=== PATIENT | male | born 1960 | race Caucasian/White ===

== ENCOUNTER 2017-08-22 05:45 | Inpatient (IN) | payer OTHER ==
[~2017-08-22] VITALS: Ht 167.6 cm; Wt 127.9 kg
--- NOTE | ~2017-08-22 | HC ---
[facility] [place] [address] CONSULTATION Name: JAY ADAMES Ruma Room #: 201-P [facility] IN M.R.#: [id number] Admission: 08/22/17 Attend Phys: Ronal Fonseca DO Discharge: Date of : 56 Report #: [id number] THIS REPORT FOR: //name// CC: ELIZABETH Fonseca DO [employer] DATE OF SERVICE: 08/22/2017 REFERRING PROVIDER: Ronal Fonseca DO REASON FOR CONSULTATION: Shortness of breath. HISTORY OF PRESENT ILLNESS: Our group was asked to see the patient in consultation while hospitalized at [facility], a pleasant 57-year-old male with past medical history most significant for muscular dystrophy and history of obstructive sleep apnea. States he is on a home BiPAP, may have been recommended to use a nocturnal ventilation device, such as a Trilogy, but the patient stated it was very expansive. He cannot give me exact clear reasons for the change. He also has a history of atrial flutter with history of permanent pacemaker and defibrillator implantation. Over the last several days, he had increasing cough, some shortness of breath, had some difficulty sleeping due to dyspnea and cough, had trouble wearing his BiPAP last night at home due to cough and dyspnea. Denies any fevers or chills. Cough has been nonproductive. No ill contacts, no recent travel. He presented to the Emergency Department earlier this morning for further evaluation. In the Emergency Department, a CT scan of the chest was performed. The patient is chronically on warfarin so no PE study was performed. The noncontrast CT suggested bibasilar atelectasis or early pneumonia, no other significant pathology identified. The patient has been resting on BiPAP, was able to tolerate oral intake this afternoon. ALLERGIES: None known. PAST MEDICAL HISTORY: 1. Muscular dystrophy as described. 2. History of atrial flutter/sick sinus syndrome, status post pacemaker placement. 3. Hypertension. 4. Myotonic dystrophy. PAST SURGICAL HISTORY: Includes laminectomy and cholecystectomy. SOCIAL HISTORY: The patient is a nonsmoker, nondrinker. Apparently, he is retired from the [employer]. [facility] [address] [place] [address] CONSULTATION Name: JAY ADAMES Room #: 201-P [facility] IN ..#: [id number] Admission: 08/22/17 Attend Phys: Ronal Fonseca DO Discharge: Date of : 56 Report #: [id number] FAMILY HISTORY: Significant for coronary artery disease and diabetes. REVIEW OF SYSTEMS: Rest of 12-point review of systems is negative except as described. He denies any progressive weakness. PHYSICAL EXAMINATION: VITAL SIGNS: Afebrile, pulse 60s, respiratory rate 16, blood pressure 109/75, oxygen saturation 91% on 6 liters nasal cannula. GENERAL: This is a pleasant middle-aged male, in no distress. Obviously weak. ENT: Clear oropharynx. No thrush. Mallampati 3 airway. NECK: Supple, no lymphadenopathy. LUNGS: Basilar inspiratory crackles, no wheezes. CARDIOVASCULAR: Heart regular. No murmurs noted. ABDOMEN: Obese, soft, nontender, no masses. EXTREMITIES: Revealed left greater than right lower extremity edema. LABORATORY DATA: CBC was normal. INR is 2.4. Chemistry profile normal except for proBNP of 429, troponin I 0.04. Urinalysis without any pyuria. Arterial blood gas on BiPAP 10/05, FiO2 of 40% revealed pH 7.34, pCO2 of 58, pO2 of 72, bicarbonate 31, not significantly different from 4 liters nasal cannula arterial blood gas. IMPRESSION: 1. Acute on chronic hypoxemic and hypercapnic respiratory failure. Continue with BiPAP as tolerated during the day today and with sleep may benefit from additional assist device with Trilogy for nocturnal ventilation. 2. Community-acquired pneumonia. Would check nasal swab for respiratory viral panel, urinary pneumococcal and legionella antigen test, sputum for culture if able and blood cultures. Continue coverage with Rocephin and azithromycin, and bronchodilators. 3. History of atrial flutter, possible paroxysmal supraventricular tachycardia episode during this admission. Cardiology consultation noted. 4. Myotonic dystrophy. 5. History of sleep apnea. RECOMMENDATIONS: As outlined above, would follow up arterial blood gas and chest x-ray tomorrow a.m. We will follow along with you. Thank you for allowing us to participate in this patient's care. By: 1538 06 Ian Curry MD /nt
--- NOTE | ~2017-08-22 | EKG ---
[place] [address] 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: JHAYLIE : 1960 Requested By: Virgilio De Souza Order Number: [id number] MD: Phillip Jose Measurements Intervals [place] Rate: 60 P: 0 [place]: 41 QRS: -76 QRSD: 146 T: 54 QT: 401 QTc: 401 Interpretive Statements Atrial-ventricular dual-paced rhythm No further analysis attempted due to paced rhythm No previous ECG available for comparison Electronically Signed On 08-22-2017 8:51:21 CDT by Phillip Jose [email or web address] <ELECTRONICALLY SIGNED> By: Phillip Jose MD, [facility] 08/22/17 0851 0555 0555 Phillip Jose MD, FACC /EPI
--- NOTE | ~2017-08-22 | HC ---
[facility] [place] [address] CONSULTATION Name: JAY ADAMES Room #: 205-P [facility] IN M.R.#: [id number] Admission: 08/22/17 Attend Phys: Ronal Fonseca DO Discharge: Date of : 56 Report #: [id number] THIS REPORT FOR: //name// CC: ELIZABETH Fonseca Educational Program Director DATE OF SERVICE: 08/22/2017 HISTORY OF PRESENT ILLNESS: The patient is a 57-year-old white male with history of myotonic muscular dystropy, atrial flutter with prior permanent pacemaker, BiPAP at night, admitted with acute on chronic respiratory failure with hypoxia. He has been diagnosed with bibasilar pneumonia with community-acquired pneumonia. Pulmonary medicine is closely involved. Complains of being overall weak with a decline from his premorbid functional status. We are seeing him in rehabilitation medicine consultation. PAST MEDICAL HISTORY: Includes atrial flutter, muscular dystrophy, pacemaker in 2011, hypertension. PAST SURGICAL HISTORY: Cholecystectomy, appendectomy, pacemaker as noted above. MEDICATIONS: Please see the full medication listing. HABITS: No history of tobacco or alcohol use. ALLERGIES: No known drug allergies. FAMILY HISTORY: Includes heart disease and diabetes. SOCIAL HISTORY: Lives in a house alone, one floor with just a couple of shallow steps to get in. He did use a cane around his house and he only ambulated short distances. Longer distances, he would use a walker. He is on O2 only at night. REVIEW OF SYSTEMS: Shortness of breath with limited activity, complains of generalized weakness. No complaints of chest pain or abdominal pain. He notes that his right upper extremity is definitely weaker than his left upper extremity. He feeds himself with his left hand. No focal extremity pain complaints. PHYSICAL EXAMINATION: GENERAL: A 57-year-old obese white male in no obvious distress. VITAL SIGNS: Last recorded temperature is 97.4, pulse 79, respirations 18, blood pressure 94/62. NEUROLOGIC: The patient is alert, appears pleasant. He ends up taking a shallow breath between his words. He appears to have facial weakness with [facility] [address] [place] [address] CONSULTATION Name: JAY ADAMES Room #: 205-P [facility] IN M.R.#: [id number] Admission: 08/22/17 Attend Phys: Ronal Fonseca DO Discharge: Date of : 56 Report #: [id number] bilateral ptosis and has difficulty forming a full smile. Depressed nasolabial folds bilaterally. EXTREMITIES: Upper extremity, he has definite weakness of the right upper extremity, appears to be grade 3 to 3+. He has definite decreased steward/stewardess economy class and difficulty with release of the steward/stewardess economy class of that right hand. Left upper extremity is better, have more of a grade 3+/5. He has a little better dexterity of that left hand and steward/stewardess economy class and release with better control. In his lower extremities, there is no focal calf swelling. Strength is grade 4-/5. DTRs are 1 to trace. No clonus. ASSESSMENT: A 57-year-old white male with the following problem list: 1. Myotonic muscular dystrophy. 2. Acute on chronic respiratory failure with hypoxemia. 3. Bibasilar community-acquired pneumonia. 4. Atrial flutter with prior failed ablation. 5. Obstructive sleep apnea with BiPAP at night. 6. Hypertension. 7. Exogenous obesity. PLAN: Therapy evaluations are underway. He certainly may benefit from a short acute in-hospital inpatient rehabilitation stay depending upon how he does in therapies. I note that PT and speech are involved. I will add OT. He denied any swallowing problems prior to his admission. We will be glad to follow along with you regarding his rehab therapy needs. By: 1108 1220 Jorge Luke MD /TRIPP
--- NOTE | ~2017-08-22 | 2DMMODE ---
[facility] [address] [place] [address] 2 D/M-MODE ECHOCARDIOGRAM Name: JAY ADAMES Room #: 205-P [facility] IN ..#: [id number] Admission: 08/22/17 Attend Phys: Ronal Fonseca, Discharge: Date of : 56 Date of Service: 08/23/17 0923 Report #: [id number] THIS REPORT FOR: //name// APPROVED REPORT Study performed: 08/23/2017 08:18:57 EXAM: Comprehensive 2D, Doppler, and color-flow Echocardiogram Patient Location: Bedside Room #: 205 Status: routine BSA: 2.31 BP: 113/83 mmHg Other Information Study Quality: Technically Difficult Technically limited study due to body habitus. Indications Dyspnea Pacemaker Hypertension/HDD 2D Dimensions RVDd: 28.11 mm LVEF(%): 54.97 (>50%) IVSd: 14.64 (7-11mm) LVOT Diam: 21.90 (18-24mm) LVDd: 47.70 mm PWd: 16.08 (7-11mm) Ascending Ao: 47.21 (22-36mm) LVDs: 34.08 (25-40mm) Aortic Root: 39.71 mm IVC: 18.00 mm Barclay's LVEF: 54.97 % Volumes Left Atrial Volume (Systole) Single Plane 4CH: 31.73 mL Single Plane 2CH: 51.39 mL LA ESV Index: 21.00 mL/m2 Aortic Valve AoV Peak Junito.: 1.81 m/s AO Peak Gr.: 13.06 mmHg LVOT Max P.99 mmHg LVOT Max V: 1.12 m/s CIRA Vmax: 2.33 cm2 Mitral Valve [facility] [address] [address] 2 D/M-MODE ECHOCARDIOGRAM Name: ADAMESJAY Room #: 205-[facility] IN ..#: [id number] Admission: 08/22/17 Attend Phys: Ronal Fonseca, Discharge: Date of : 56 Date of Service: 08/23/17 0923 Report #: [id number] E/A Ratio: 2.6 MV Decel. Time: 185.78 ms MV E Max Junito.: 0.87 m/s MV A Junito.: 0.33 m/s MV PHT: 53.88 ms IVRT: 87.66 ms Pulmonary Valve PV Peak Junito.: 0.77 m/s PV Peak Gr.: 2.36 mmHg Tricuspid Valve RAP Estimate: 5.00 mmHg Left Ventricle The left ventricle is normal size. Regional wall motion is not well visualized but grossly normal. Mild to moderate concentric left ventricular hypertrophy. The left ventricular systolic function is normal. The left ventricular ejection fraction is within the normal range. LVEF is 60-65%. This study is not technically sufficient to allow evaluation of the LV diastolic function. Right Ventricle The right ventricle is normal size. Right ventricular function cannot be assessed due to poor image quality. Atria The left atrium size is normal. The right atrium size is normal. Aortic Valve Aortic valve is mildly calcified. Mild aortic regurgitation. There is no aortic valvular stenosis. Mitral Valve The mitral valve is normal in structure. There is no mitral valve regurgitation noted. No evidence of mitral valve stenosis. Tricuspid Valve The tricuspid valve is normal in structure. There is no tricuspid valve regurgitation noted. Unable to assess PA pressure. Pulmonic Valve Pulmonic valve is not well visualized. There is no pulmonic valvular regurgitation. [employer] [facility] [address] [place] [address] 2 D/M-MODE ECHOCARDIOGRAM Name: JAY ADAMES Ruma Room #: 205-P [facility] IN ..#: [id number] Admission: 08/22/17 Attend Phys: Ronal Fonseca, Discharge: Date of : 56 Date of Service: 08/23/17 0923 Report #: [id number] Aortic root is dilated at 4 cm. Ascending aorta is dilated at 4.7 cm. IVC is normal in size and collapses >50% with inspiration. Pericardium There is no pericardial effusion. <Conclusion> The left ventricular systolic function is normal. Regional wall motion is not well visualized but grossly normal. LVEF 60-65%. Aortic valve is mildly calcified. Mild aortic regurgitation, no stenosis. The mitral valve is normal in structure. No mitral valve regurgitation noted. Ascending aorta is dilated at 4.7 cm. There is no pericardial effusion. ICD wires in right heart <ELECTRONICALLY SIGNED> By: Phillip Jose MD, FACC 08/23/17922 2 2 Phillip Jose MD, FACC /INF
[~2017-08-22 05:45] MED LIST: ALDACTONE25 MG PO; COUMADIN 3 MG TA3 M1 PO; COUMADIN 4 MG TA4 M1 PO; QUINAPRIL HCL5 MG PO; TOPROL XL50 MG PO
[2017-08-22 05:50] VITALS: BP 142/89
[2017-08-22 06:21] LABS: ABSOLUTE NEUTROPHILS 6.8 thou/uL (1.4-8.2); BASOPHILS 0.6 % (0.0-2.0); HEMATOCRIT 46.7 % (42.0-52.0); HEMOGLOBIN 15.3 gm/dL (14.0-18.0); LYMPHOCYTES 9.6 % (24.0-44.0); MCH 31.2 pg (26.0-34.0); MCHC 32.7 g/dL (28.0-37.0); MCV 95.3 fL (80.0-100.0); MONOCYTES 4.7 % (1.0-8.0); PLATELET COUNT 160 thou/uL (150-400); POLYS 83.1 % (36.0-66.0); WBC 8.2 thou/uL (4.0-11.0)
[2017-08-22 06:27] LABS: MANUAL DIFF NO
[2017-08-22 06:30] LABS: ANION GAP 1 mmol/L (7-16); BUN 12 mg/dL (7-18); CALCIUM 9.1 mg/dL (8.5-10.1); CHLORIDE 106 mmol/L (98-107); CO2 32 mmol/L (21-32); CREATININE 0.8 mg/dL (0.7-1.3); GLUCOSE 112 mg/dL (74-106); POTASSIUM 4.5 mmol/L (3.5-5.1); SODIUM 139 mmol/L (136-145)
[2017-08-22 06:32] LABS: INR 2.4; PROTIME 24.3 Seconds (9.3-11.4)
[2017-08-22 06:39] LABS: TROPONIN-I < 0.04 ng/mL (<0.04-0.07)
[2017-08-22 06:42] LABS: ABG SAMPLE TYPE ARTERIAL; BE(vivo) 2.7 mmol/L (-2 to +3); HCO3 30.1 mmol/L (22.0-26.0); LACTATE 1.34 mmol/L (0.5-2.0); O2(CT) 21.5 mL/dL (15.0-23.0); O2Hb 92.7 % (92.0-98.0); PCO2 56.2 mmHg (35.0-45.0); PO2 72.8 mmHg (80.0-100.0); STICK SITE L.RADIAL; pH 7.346 (7.360-7.450); sO2 93.6 % (92.0-98.0); tCO2 31.8 mmol/L (24.0-30.0)
[2017-08-22 08:28] VITALS: BP 133/88
[2017-08-22 10:40] VITALS: BP 109/75
[2017-08-22 10:53] VITALS: BP 95/62
[2017-08-22 12:56] LABS: ABG SAMPLE TYPE ARTERIAL; BE(vivo) 3.4 mmol/L (-2 to +3); HCO3 30.9 mmol/L (22.0-26.0); LACTATE 1.85 mmol/L (0.5-2.0); O2Hb 92.7 % (92.0-98.0); PCO2 58.2 mmHg (35.0-45.0); PO2 71.6 mmHg (80.0-100.0); Pressure Support 6 cm H20; STICK SITE L.RADIAL; pH 7.343 (7.360-7.450); sO2 93.2 % (92.0-98.0); tCO2 32.7 mmol/L (24.0-30.0)
[2017-08-22 13:19] LABS: URINE BILIRUBIN NEGATIVE (Negative); URINE BLOOD 1+ (Negative); URINE COLOR YELLOW; URINE GLUCOSE-RANDOM* NEGATIVE (Negative); URINE KETONES NEGATIVE (Negative); URINE LEUKOCYTES-REFLEX NEGATIVE (Negative); URINE PROTEIN (DIPSTICK) NEGATIVE (Negative); URINE UROBILINOGEN 0.2 E.U./dl (0.2-1.0)
[2017-08-22 13:28] LABS: CASTS None Seen /LPF (None Seen); SQUAMOUS None Seen /LPF (0-3); URINE RBC 0-2 Rare /HPF (0-2); URINE WBC-REFLEX None Seen /HPF (0-5)
[2017-08-22 13:29] LABS: CRYSTALS None Seen /LPF (None Seen)
[2017-08-22 19:05] VITALS: BP 97/68
[2017-08-22 23:36] VITALS: BP 118/75
[2017-08-23 03:40] VITALS: BP 135/86
[2017-08-23 04:44] LABS: ABSOLUTE NEUTROPHILS 4.8 thou/uL (1.4-8.2); BASOPHILS 0.8 % (0.0-2.0); EOSINOPHILS 1.2 % (0.0-3.0); HEMATOCRIT 46.8 % (42.0-52.0); HEMOGLOBIN 15.2 gm/dL (14.0-18.0); LYMPHOCYTES 16.4 % (24.0-44.0); MCH 30.9 pg (26.0-34.0); MCHC 32.5 g/dL (28.0-37.0); MCV 95.1 fL (80.0-100.0); PLATELET COUNT 155 thou/uL (150-400); POLYS 74.6 % (36.0-66.0); RBC 4.92 mil/uL (4.50-6.00); RDW 15.9 % (10.5-14.5); WBC 6.4 thou/uL (4.0-11.0)
[2017-08-23 04:47] LABS: MANUAL DIFF NO
[2017-08-23 04:52] LABS: CALCIUM 9.2 mg/dL (8.5-10.1); CREATININE 0.9 mg/dL (0.7-1.3); MAGNESIUM 2.4 mg/dL (1.8-2.4); POTASSIUM 4.2 mmol/L (3.5-5.1)
[2017-08-23 04:53] LABS: INR 2.6; PROTIME 26.3 Seconds (9.3-11.4)
[2017-08-23 07:03] LABS: ABG SAMPLE TYPE ARTERIAL; BE(vivo) 3.9 mmol/L (-2 to +3); HCO3 29.8 mmol/L (22.0-26.0); LACTATE 0.98 mmol/L (0.5-2.0); O2(CT) 21.1 mL/dL (15.0-23.0); O2Hb 92.1 % (92.0-98.0); PCO2 49.2 mmHg (35.0-45.0); PO2 68.2 mmHg (80.0-100.0); STICK SITE L.RADIAL; sO2 93.5 % (92.0-98.0); tCO2 31.3 mmol/L (24.0-30.0)
[2017-08-23 07:22] VITALS: BP 113/83
[2017-08-23 19:28] VITALS: BP 98/75
[2017-08-24 04:43] VITALS: BP 82/53
[2017-08-24 08:29] VITALS: BP 94/62
[2017-08-24 11:48] VITALS: BP 79/52
[2017-08-24 15:37] VITALS: BP 85/59
[2017-08-24 19:46] VITALS: BP 98/52
[2017-08-24 23:43] VITALS: BP 99/57
[2017-08-25 04:31] VITALS: BP 128/99
[2017-08-25 07:15] VITALS: BP 104/62
[2017-08-25 12:50] VITALS: BP 70/40
[2017-08-25] MEDS ORDERED: ACETAMINOPHEN325 M1 PO (13:33)
[2017-08-25 14:50] LABS: ABG SAMPLE TYPE ARTERIAL; BE(vivo) 1.7 mmol/L (-2 to +3); HCO3 29.1 mmol/L (22.0-26.0); O2Hb 94.1 % (92.0-98.0); PCO2 56.7 mmHg (35.0-45.0); PO2 78.5 mmHg (80.0-100.0); sO2 94.5 % (92.0-98.0); tCO2 30.8 mmol/L (24.0-30.0)
[2017-08-25 14:53] LABS: pH 7.328 (7.360-7.450)
[2017-08-25 14:54] LABS: STICK SITE L.RADIAL
== END 2017-08-25 14:59 | DRG 871 ==
LOC: ER 05:45 → EROBS 08:15 → 2N 08:15 → ENTRNSPT 08-25 14:28 → EDTRNSPTSTS 08-25 14:29 → 2N 08-25 14:59
PROVIDERS: Emergency Medicine; Family Medicine; Internal Medicine Pulmonary Disease; Nurse Practitioner
PROC: 5A09357 Assistance with Respiratory Ventilation, Less than 24 Consecutive Hours, Continuous Positive Airway Pressure (ICD-10-PCS; principal; 2017-08-22)
DX: A41.9 Sepsis, unspecified organism (principal); J96.21 Acute and chronic respiratory failure with hypoxia; J18.0 Bronchopneumonia, unspecified organism; J96.22 Acute and chronic respiratory failure with hypercapnia; I48.92 Unspecified atrial flutter; Z68.42 Body mass index [BMI] 45.0-49.9, adult; Z96.89 Presence of other specified functional implants; I10 Essential (primary) hypertension; Z60.2 Problems related to living alone; G71.11 Myotonic muscular dystrophy; G47.33 Obstructive sleep apnea (adult) (pediatric); E66.09 Other obesity due to excess calories; I48.91 Unspecified atrial fibrillation; Z28.21 Immunization not carried out because of patient refusal; Z90.49 Acquired absence of other specified parts of digestive tract; Z82.49 Family history of ischemic heart disease and other diseases of the circulatory system; Z83.3 Family history of diabetes mellitus; Z79.899 Other long term (current) drug therapy
CPT/HCPCS: 10081

== ENCOUNTER → 2017-09-14 | Outpatient (CLI) | payer OTHER ==
[~2017-09-14] MED LIST changes: +ACETAMINOPHEN325 M1 PO; +BACTRIM DS TAB1 EACH PO; +COUMADIN 1MG TAB1 M1 PO; +COUMADIN 2.5MG2.5 M1 PO; +DUONEB 2.5-0.5 M3 ML INH; +PROBIOTIC1 EAC1 PO; +PROTONIX40 M1 PO; +SSD CREAM 1% 5050 GM TOP; +TOPROL XL25 MG PO
== END ==
LOC: HYPER 06:57
DX: I87.2 Venous insufficiency (chronic) (peripheral) (principal); L97.822 Non-pressure chronic ulcer of other part of left lower leg with fat layer exposed; L97.811 Non-pressure chronic ulcer of other part of right lower leg limited to breakdown of skin; G71.11 Myotonic muscular dystrophy; G47.30 Sleep apnea, unspecified; S90.415A Abrasion, left lesser toe(s), initial encounter; I10 Essential (primary) hypertension; I48.91 Unspecified atrial fibrillation; E66.9 Obesity, unspecified; Z95.0 Presence of cardiac pacemaker; Z72.89 Other problems related to lifestyle; Z68.36 Body mass index [BMI] 36.0-36.9, adult; X58.XXXA Exposure to other specified factors, initial encounter; Y93.89 Activity, other specified; Y92.89 Other specified places as the place of occurrence of the external cause; Y99.8 Other external cause status

== ENCOUNTER → 2017-09-28 | Outpatient (CLI) | payer OTHER | LOC: HYPER 07:56 | DX: I87.2 Venous insufficiency (chronic) (peripheral) (principal); L97.822 Non-pressure chronic ulcer of other part of left lower leg with fat layer exposed; L97.812 Non-pressure chronic ulcer of other part of right lower leg with fat layer exposed; G71.11 Myotonic muscular dystrophy; G47.30 Sleep apnea, unspecified; I48.91 Unspecified atrial fibrillation; E66.9 Obesity, unspecified; Z68.38 Body mass index [BMI] 38.0-38.9, adult; Z72.89 Other problems related to lifestyle; Z95.0 Presence of cardiac pacemaker ==

== ENCOUNTER → 2017-10-12 | Outpatient (CLI) | payer OTHER | LOC: HYPER 06:46 | DX: I87.2 Venous insufficiency (chronic) (peripheral) (principal); L97.812 Non-pressure chronic ulcer of other part of right lower leg with fat layer exposed; L97.822 Non-pressure chronic ulcer of other part of left lower leg with fat layer exposed; G71.11 Myotonic muscular dystrophy; G47.30 Sleep apnea, unspecified; I10 Essential (primary) hypertension; I48.91 Unspecified atrial fibrillation; E66.9 Obesity, unspecified; Z72.89 Other problems related to lifestyle; Z95.0 Presence of cardiac pacemaker; Z68.38 Body mass index [BMI] 38.0-38.9, adult ==

== ENCOUNTER → 2017-10-27 | Outpatient (CLI) | payer OTHER ==
[~2017-10-27] MED LIST changes: +MUCINEX600 MG PO; +PREDNISONE 20 M20 M1 PO; +QUINAPRIL 20 MG20 MG PO; +SPIRONOLACTONE25 M1 PO
== END ==
LOC: HYPER 06:50
DX: I87.2 Venous insufficiency (chronic) (peripheral) (principal); L97.222 Non-pressure chronic ulcer of left calf with fat layer exposed; L97.812 Non-pressure chronic ulcer of other part of right lower leg with fat layer exposed; S91.105A Unspecified open wound of left lesser toe(s) without damage to nail, initial encounter; I10 Essential (primary) hypertension; I48.91 Unspecified atrial fibrillation; G47.30 Sleep apnea, unspecified; E66.9 Obesity, unspecified; Z68.38 Body mass index [BMI] 38.0-38.9, adult; Z95.0 Presence of cardiac pacemaker; Z72.89 Other problems related to lifestyle; X58.XXXA Exposure to other specified factors, initial encounter; Y93.89 Activity, other specified; Y92.89 Other specified places as the place of occurrence of the external cause; Y99.8 Other external cause status

== ENCOUNTER → 2017-12-05 | Outpatient (CLI) | payer OTHER | LOC: HYPER 06:46 | DX: I87.2 Venous insufficiency (chronic) (peripheral) (principal); L97.822 Non-pressure chronic ulcer of other part of left lower leg with fat layer exposed; L97.812 Non-pressure chronic ulcer of other part of right lower leg with fat layer exposed; S91.105A Unspecified open wound of left lesser toe(s) without damage to nail, initial encounter; I10 Essential (primary) hypertension; I48.91 Unspecified atrial fibrillation; G47.30 Sleep apnea, unspecified; Z72.89 Other problems related to lifestyle; Z95.0 Presence of cardiac pacemaker; X58.XXXA Exposure to other specified factors, initial encounter; Y93.89 Activity, other specified; Y92.89 Other specified places as the place of occurrence of the external cause; Y99.8 Other external cause status ==

== ENCOUNTER 2018-08-18 15:44 | Inpatient (IN) | payer OTHER ==
[~2018-08-18] VITALS: Ht 180.3 cm; Wt 125.9 kg
--- NOTE | ~2018-08-18 | EKG ---
[address] [address] ELECTROCARDIOGRAM REPORT Name: JAY ADAMES Room #: 246-P ADM IN M.R.#: [id number] Admission: 08/18/18 Attend Phys: Sj Griffin MD Discharge: Date of : 56 Report #: [id number] THIS REPORT FOR: //name// 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 freire : 1960 Requested By: Kristin Petit Order Number: [id number] MD: Phillip Jose Measurements Intervals [place] Rate: 98 P: [place]: QRS: -34 QRSD: 142 T: 60 QT: 397 QTc: 507 Interpretive Statements Atrial fibrillation Left bundle branch block Compared to ECG 06/29/2018 14:13:25 Biventricular pacing no longer present Electronically Signed On 09-12-2018 7:58:45 WATER JET OPERATOR by Phillip Jose [email or web address] <ELECTRONICALLY SIGNED> By: Phillip Jose MD, [facility] 09/12/18 0758 3 3 Phillip Jose MD, FACC /EPI
--- NOTE | ~2018-08-18 | O ---
[facility] [place] [address] OPERATIVE REPORT Name: JAY ADAMES Ruma Room #: 246-P ADM IN M.R.#: [id number] Admission: 08/18/18 Attend Phys: Sj Griffin MD Discharge: Date of : 56 Report #: [id number] THIS REPORT FOR: //name// CC: ELIZABETH SARMIENTO Physician staff Sj Griffin CLINICAL HISTORY: A 58-year-old white male with myotonic dystrophy, progressive weakness, now with aspiration pneumonia. Diagnostic bronchoscopy was performed due to continued presence of increased secretions. POSTOPERATIVE DIAGNOSES: 1. Moderate bilateral mucosal edema. 2. Mild mucous secretions in the right lower lobe. 3. No evidence of mucus plugging. DESCRIPTION OF PROCEDURE: Following obtaining consent and risks and benefits have been explained to the patient and the patient's family, which include infection, bleeding, pneumothorax, procedure performed in the ICU. The patient is currently on Diprivan. A disposable flexible fiberoptic bronchoscope was then introduced through the ET tube without difficulty. Distal trachea was unremarkable. Sujata was unremarkable. Mucosa throughout the airway was mild to moderately edematous. The left mainstem bronchus, left upper lobe and left lower lobe otherwise unremarkable. Right mainstem bronchus, right upper lobe, right middle lobe and right lower lobe were unremarkable other than mild mucus secretion seen in the right lower lobe. It appears to be a lightish yellow-white. Mucosa again were mild to moderately edematous. No endobronchial lesion seen. Bronchial wash was performed in the right lower lobe. The patient tolerated the procedure well, no complications. Vital signs and saturation throughout the study were within normal range. Bronchial wash specimen will be sent for microbiology studies. <ELECTRONICALLY SIGNED> By: Tito Fine MD 09/07/18 1757 1653 1714 Tito Fine MD /nt
--- NOTE | ~2018-08-18 | HC ---
[facility] [place] [address] [place] [address] CONSULTATION Name: JAY ADAMES Room #: 246-P [facility] IN M.R.#: [id number] Admission: 08/18/18 Attend Phys: Sj Griffin MD Discharge: Date of : 56 Report #: [id number] THIS REPORT FOR: //name// CC: ELIZABETH SARMIENTO Physician staff Sj Griffin REFERRAL PHYSICIAN: Dr. Frost. REASON FOR REFERRAL: Acute respiratory failure. HISTORY OF PRESENT ILLNESS: The patient is a 58-year-old white male who was admitted on 08/18/2018 for cellulitis. The patient has been undergoing treatment of his wound involving his lower extremities along with heart failure. He has also developed renal failure requiring hemodialysis. Early this morning, the patient was found to be obtunded and distressed. Arterial blood gas showed an acute hypercapnic respiratory failure. He was transferred to the ICU and was subsequently intubated. A Pulmonary consultation was requested. The patient is known to this physician from his last hospitalization going back to May of this year. The patient has known sleep apnea along with myotonic muscular dystrophy. During that hospitalization the patient had required high flow O2 related to pulmonary impairment resulting from his restrictive ventilatory defect, obesity, sleep apnea, etc. Chest x-ray today shows a new right upper lobe infiltrates. Lung volumes are small, right hemidiaphragm is elevated. PAST MEDICAL HISTORY: Notable for TRICIA, on BiPAP, obesity, restrictive ventilatory defect, myotonic muscular dystrophy, sick sinus syndrome, history of melanoma undergoing resection at [facility], atrial flutter, hypertension, past history of MRSA infection involving the lower extremities. PAST SURGICAL HISTORY: Status post cholecystectomy, appendectomy, skin graft procedure for his melanoma on his occipital area. ALLERGIES: None. MEDICATIONS: List reviewed in the MAR. FAMILY HISTORY: Noncontributory. SOCIAL HISTORY: No tobacco or alcohol use. REVIEW OF SYSTEMS: Deferred as the patient is intubated. [facility] [address] [place] [address] CONSULTATION Name: JAY ADAMES Room #: 246-P [facility] IN [facility]#: [id number] Admission: 08/18/18 Attend Phys: Sj Griffin MD Discharge: Date of : 56 Report #: [id number] PHYSICAL EXAMINATION: GENERAL: He is now sedated. VITAL SIGNS: Temperature is 98 degrees Fahrenheit, pulse is 90, respiratory rate is 20, blood pressure 140/84 mmHg, saturation 98%. HEENT: Normocephalic, atraumatic. He is orally intubated. NECK: Supple, without lymphadenopathy or thyromegaly. CHEST: Breath sounds are fair. Coarse bilaterally, rales in the right lung field. CARDIOVASCULAR: Normal S1, S2. No murmurs or gallop. There is no JVD, no carotid bruit. Pulses are 2+/4+ bilaterally. ABDOMEN: Soft, nontender, no organomegaly or masses felt. GENITOURINARY: Deferred. RECTAL: Deferred. EXTREMITIES: Notable for 1+ bilateral lower extremity edema. NEUROLOGIC: Deferred as the patient is intubated. LABORATORY DATA: Chest x-ray as mentioned above showing new right upper lobe infiltrate. Lung volumes are decreased bilaterally, right diaphragm is also elevated. Arterial blood gas early this morning revealed pH 7.10, pCO2 of 95, pO2 of 63 on 100% FiO2. Followup arterial blood gas revealed pH 7.2, pCO2 of 68, pO2 of 82 on 100% FiO2. Sodium 139, potassium 5.2, chloride 100, CO2 is 30, BUN is 24, creatinine is 2.7, on admission was 6.1. Liver enzymes are grossly unremarkable. CBC is pending. Recent culture from the leg wound grew MRSA. IMPRESSION: 1. Ilbop-zp-nnvkqmm hypercapnic hypoxic respiratory failure in this 58-year-old white male. Chest x-ray shows right upper lobe infiltrates. Has an ongoing heart failure, sleep apnea, muscular dystrophy, resulting in weakness. Overnight decompensation is likely related to aspiration as the patient is aspirating. 2. Right upper lobe infiltrate, aspiration pneumonia, severe sepsis with hypotension. 3. Probable chronic hypercapnic respiratory insufficiency related to hypoventilation due to his progressive weakness, obesity, restrictive ventilatory defect and sleep apnea. 4. Obstructive sleep apnea, on BiPAP. 5. Lower extremity cellulitis, methicillin-resistant Staphylococcus aureus. 6. Acute kidney injury, ongoing dialysis. 7. Muscular dystrophy with progressive weakness. RECOMMENDATION: We will continue mechanical ventilation, we will try to obtain sputum for Gram stain, culture and sensitivity. Broad spectrum antibiotics to cover for aspiration pneumonia. Wean O2 for saturation 90%. DVT and GI prophylaxis will be recommended. Nutritional support will be addressed once the patient is stable. With degenerative neurologic condition, the patient should [address] [address] CONSULTATION Name: JAY ADAMES Room #: 246-P ADM IN M.R.#: [id number] Admission: 08/18/18 Attend Phys: Sj Griffin MD Discharge: Date of : 56 Report #: [id number] be evaluated for possible aspiration once he is clinically improved in the near future. Thank you for this consultation. <ELECTRONICALLY SIGNED> By: Tito Fine MD 09/04/18 1719 1246 1655 Tito Fine MD /nt
--- NOTE | ~2018-08-18 | HC ---
[facility] [place] [address] CONSULTATION Name: JAY ADAMES Ruma Room #: 358-P [facility] IN .R.#: [id number] Admission: 08/18/18 Attend Phys: Sj Griffin MD Discharge: Date of : 56 Report #: [id number] THIS REPORT FOR: //name// CC: ELIZABETH SARMIENTO Physician staff Sj Griffin DATE OF SERVICE: 08/21/2018 CHIEF COMPLAINT: Cellulitis, lower extremities. HISTORY OF PRESENT ILLNESS: This is a 58-year-old male patient with whom I am familiar from recent hospitalization. He has had lower extremity edema, cellulitis and ulceration. He is admitted for ongoing treatment. He is also noted to have a surgical wound to the posterior scalp following excision of a melanoma. The patient has a history of myotonic muscular dystrophy and respiratory failure. He is mostly somnolent, not able to answer most questions. PAST MEDICAL HISTORY: Positive for respiratory failure, atrial flutter with prior ablation, obstructive sleep apnea, hypertension, anxiety, obesity, history of myotonic muscular dystrophy. ALLERGIES: None. MEDICATIONS: Include Mucinex, albuterol, morphine, nitroglycerin, ondansetron, metoprolol, pantoprazole, quinapril, spironolactone, Coumadin. SOCIAL HISTORY: Negative for alcohol or tobacco use. FAMILY HISTORY: Positive for heart disease and diabetes. REVIEW OF SYSTEMS: Not obtainable due to patient's decreased level of consciousness. PHYSICAL EXAMINATION: VITAL SIGNS: At this time include temperature 97.7, pulse 82, respiratory rate 18, blood pressure 98/62. GENERAL: This is a chronically ill-appearing male patient who appears to be in minimal distress. HEENT: Head demonstrates surgical wound to the posterior scalp in the occipital region is much improved, clean, healthy, granulating and with evidence of epithelization. Nose and throat are clear. NECK: Supple. LUNGS: Diminished. HEART: Regular rhythm. ABDOMEN: Soft. Bowel sounds present. [facility] [address] [place] [address] CONSULTATION Name: JAY ADAMES Room #: [address] [place] [address] IN ..#: [id number] Admission: 08/18/18 Attend Phys: Sj Griffin MD Discharge: Date of : 56 Report #: [id number] EXTREMITIES: Lower extremities demonstrate significant crusting and erythema consistent with ulceration and cellulitis. NEUROLOGIC: The patient is symmetrical. He is somnolent. CLINICAL IMPRESSION: 1. Cellulitis to bilateral lower extremities, worse on the right than on the left. 2. Surgical wound of the scalp. RECOMMENDATIONS: At this point in time, the patient was started on intravenous antibiotic therapy, will recommend Amlactin cream to both lower extremities. We will recommend elevation for edema control. At this time, he will need aggressive nutritional support. We will use a Bordered Foam to the scalp. He will need turning and repositioning when a bed as he is somewhat somnolent and unable to move on his own. I appreciate being asked to see him in consultation. <ELECTRONICALLY SIGNED> By: Jerzy Barber MD 08/31/18 0920 0832 41 Jerzy Barber MD /nt
--- NOTE | ~2018-08-18 | 2DMMODE ---
[facility] [place] [address] 2 D/M-MODE ECHOCARDIOGRAM Name: ADAMESJAY Room #: 246-P [facility] IN ..#: [id number] Admission: 08/18/18 Attend Phys: Sj Griffin MD Discharge: Date of : 56 Date of Service: 09/14/18 1119 Report #: [id number] THIS REPORT FOR: //name// APPROVED REPORT Study performed: 09/14/2018 09:03:11 EXAM: Limited 2D, Doppler, and color-flow Echocardiogram Patient Location: ICU Room #: 246 Status: routine BSA: 2.29 HR: 80 bpm BP: 111/70 mmHg Rhythm: 0 Other Information Study Quality: Adequate Technically limited study due to patient on ventilator, patient restrained and combative. Indications Respiratory failure, htn, S/P Code (Complete echo less than 1 month ago) 2D Dimensions IVSd: 12.73 (7-11mm) LVOT Diam: 24.31 (18-24mm) LVDd: 53.13 mm PWd: 11.81 (7-11mm) Ascending Ao: 40.73 (22-36mm) LVDs: 41.01 (25-40mm) Left Atrium: 43.18 (27-40mm) Aortic Root: 45.08 mm LV Single Plane 4CH: 41.30 % LV Single Plane 2CH: 54.77 % Volumes Left Atrial Volume (Systole) Single Plane 4CH: 29.24 mL Single Plane 2CH: 57.45 mL LA ESV Index: 20.00 mL/m2 Aortic Valve AoV Peak Junito.: 1.69 m/s AO Peak Gr.: 11.46 mmHg AO Mean Gr.: 6.10 mmHg AO V2 Mean: 1.19 m/s AO V2 VTI: 26.80 cm [facility] [place] [address] 2 D/M-MODE ECHOCARDIOGRAM Name: ADAMESJAY Room #: 246-P [facility] IN .R.#: [id number] Admission: 08/18/18 Attend Phys: Sj Griffin MD Discharge: Date of : 56 Date of Service: 09/14/18 1119 Report #: [id number] Mitral Valve MV Decel. Time: 240.68 ms Tricuspid Valve TR Peak Junito.: 2.38 m/s RAP Estimate: 15.00 mmHg TR Peak Gr.: 22.64 mmHg PA Pressure: 38.00 mmHg Left Ventricle Left ventricle is grossly normal size. Mild concentric left ventricular hypertrophy. Left ventricular systolic function is mildly decreased. LVEF is 45-50%. Right Ventricle The right ventricle is normal size. The right ventricular systolic function is normal. Pacemaker lead is present in the right ventricle. Atria The left atrium size is normal. Right atrium is not well visualized. Aortic Valve Aortic valve is grossly normal in structure. Mitral Valve The mitral valve is normal in structure. Trace to mild mitral regurgitation. Tricuspid Valve The tricuspid valve is normal in structure. Mild tricuspid regurgitation. Estimated PAP 38 mmHg. Great Vessels IVC is dilated and collapses <50% with inspiration. Pericardium There is no pericardial effusion. <Conclusion> Left ventricle is grossly normal size. LVEF is 45-50%. The right ventricle is normal size. Pacemaker lead is present in the right ventricle. The left atrium size is normal. [facility] [place] [address] 2 D/M-MODE ECHOCARDIOGRAM Name: JAY ADAMES Room #: 246-P [facility] IN M.R.#: [id number] Admission: 08/18/18 Attend Phys: Sj Griffin MD Discharge: Date of : 56 Date of Service: 09/14/189 Report #: [id number] Right atrium is not well visualized. Aortic valve is grossly normal in structure. The mitral valve is normal in structure. Trace to mild mitral regurgitation. The tricuspid valve is normal in structure. Mild tricuspid regurgitation. Estimated PAP 38 mmHg. IVC is dilated and collapses <50% with inspiration. There is no pericardial effusion. <ELECTRONICALLY SIGNED> By: Primitivo Brewster MD 09/14/18 1119 18 1119 Primitivo Brewster MD /INF
--- NOTE | ~2018-08-18 | 2DMMODE ---
[facility] [address] [place] [address] 2 D/M-MODE ECHOCARDIOGRAM Name: JAY ADAMES Room #: 430-P [facility] IN [facility]#: [id number] Admission: 08/18/18 Attend Phys: Sj Griffin MD Discharge: Date of : 56 Date of Service: 08/19/18 1237 Report #: [id number] THIS REPORT FOR: //name// APPROVED REPORT Study performed: 08/19/2018 10:09:17 EXAM: Comprehensive 2D, Doppler, and color-flow Echocardiogram Patient Location: In-Patient Room #: 430 Status: routine BSA: 2.33 BP: 99/65 mmHg Other Information Study Quality: Fair Indications Pacemaker Fatigue 2D Dimensions IVSd: 11.05 (7-11mm) LVOT Diam: 32.25 (18-24mm) LVDd: 54.99 mm PWd: 10.78 (7-11mm) LVDs: 42.67 (25-40mm) Left Atrium: 43.38 (27-40mm) Aortic Root: 42.40 mm TAPSE: 1.80 (<1.7) Volumes Left Atrial Volume (Systole) Single Plane 4CH: 104.97 mL Tricuspid Valve TR Peak Junito.: 3.23 m/s RAP Estimate: 3.00 mmHg TR Peak Gr.: 34.00 mmHg RVSP: 37.00 mmHg Left Ventricle The left ventricle is normal size. Borderline concentric left ventricular hypertrophy. Left ventricular systolic function is borderline. LVEF is 50%. This study is not technically sufficient to allow evaluation of the LV diastolic function. [facility] [place] [place] [address] 2 D/M-MODE ECHOCARDIOGRAM Name: JAY ADAMES Ruma Room #: 430-P [facility] IN [facility].#: [id number] Admission: 08/18/18 Attend Phys: Sj Griffin MD Discharge: Date of : 56 Date of Service: 08/19/18 1237 Report #: [id number] Right Ventricle Right ventricle is at the upper limits of normal. Pacemaker lead is present in the right ventricle. Atria The left atrium size is normal. Right atrium size is normal. Aortic Valve Aortic valve is not well visualized. Trace aortic regurgitation. Mitral Valve Mitral valve leaflets open well. Trace mitral regurgitation. No evidence of mitral valve stenosis. Tricuspid Valve Tricuspid valve is not well visualized. Trace tricuspid regurgitation. Pulmonic Valve Pulmonic valve is not well visualized. Great Vessels Aortic root is dilated, measuring 4.24 cm. IVC is not well visualized. Pericardium The pericardium appears normal. No pericardial effusion. Critical Notification Critical Value: No <Conclusion> The left ventricle is normal size. LVEF is 50%. Right ventricle is at the upper limits of normal. Pacemaker lead is present in the right ventricle. The left atrium size is normal. Right atrium size is normal. Aortic valve is not well visualized. Trace aortic regurgitation. Mitral valve leaflets open well. Trace mitral regurgitation. Tricuspid valve is not well visualized. Trace tricuspid regurgitation. Pulmonic valve is not well visualized. [facility] [place] [address] 2 D/M-MODE ECHOCARDIOGRAM Name: JAY ADAMES Room #: 430-P [facility] IN ..#: [id number] Admission: 08/18/18 Attend Phys: Sj Griffin MD Discharge: Date of : 56 Date of Service: 08/19/187 Report #: [id number] Aortic root is dilated, measuring 4.24 cm. The pericardium appears normal. No pericardial effusion. <ELECTRONICALLY SIGNED> By: Primitivo Brewster MD 08/19/18 1237 36 36 Primitivo Brewster MD /INF
--- NOTE | ~2018-08-18 | HC ---
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 He presents now with increased swelling along with venous stasis dermatitis changes and some blistering of the skin with secondary cellulitis. He has a history of MRSA. Also, has a history of melanoma, status post surgical resection and grafting at the occipital region of his scalp. Denies any fever, chills or sweats. He is fairly limited in his activity due to his myotonic muscular dystrophy. He does walk with a walker. He denies any fever, chills or sweats. He has some lower extremity discomfort. ALLERGIES: None known. MEDICATIONS: As noted on his MAR, which were reviewed. PAST MEDICAL HISTORY: Lower extremity edema, venous stasis disease, closed head injury, melanoma, hypertension, MRSA infection of the soft tissues, myotonic muscular dystrophy, obstructive sleep apnea, pneumonia, permanent pacemaker, cholecystectomy, appendectomy, hypertension. FAMILY HISTORY: Heart disease, diabetes. SOCIAL HISTORY: Nonsmoker, no significant alcohol intake. REVIEW OF SYSTEMS: Ten-point review negative other than what has been described above. PHYSICAL EXAMINATION: VITAL SIGNS: Afebrile, hemodynamically stable. GENERAL: He was sitting up in his chair, in no acute distress. Did not open his eyes much during his evaluation. SKIN: Scalp had granulation tissue and a fairly large wound, posterior occipital region. Mild surrounding erythema. No purulent drainage. No fluctuance. Several other skin lesions noted with excoriations. Several scratches noted across his abdomen and lower legs. EXTREMITIES: 2+ lower extremity edema, left greater than right. Had evidence [facility] [address] [place] [address] CONSULTATION Name: ZACARIASJAY Ruma Room #: 430-P [facility] IN M.R.#: [id number] Admission: 08/18/18 Attend Phys: Sj Griffin MD Discharge: Date of : 56 Report #: [id number] of cellulitis with some lesions associated with some purulence. He had 2+ anasarca. Pulses in his feet were normal. HEENT: Eyes: No conjunctival injection. Mouth: Without lesions. NECK: Supple, with no thyromegaly or mass. LUNGS: Clear. HEART: Regular, without murmur. ABDOMEN: Soft and nontender. Moderately obese. BACK: Nontender. No CVA tenderness. NEUROLOGIC: Mood was normal. Generalized weakness noted. No other focal neurologic changes. LABORATORY STUDIES: BNP 988. Sodium 145, potassium 4.3, bicarbonate 32, creatinine 1.1. Hemoglobin 11.8, white count was, platelet count 121,000. Lactate 0.8. Ultrasound of lower extremities showed no evidence of DVT. Liver function tests, bilirubin 1.3, otherwise normal. Cultures of blood are pending. Left leg wound culture pending. IMPRESSION: 1. Bilateral lower extremity venous stasis disease with secondary cellulitis. Has a history of methicillin-resistant Staphylococcus aureus. 2. Congestive heart failure with peripheral edema and anasarca. 3. Myotonic dystrophy. 4. Sick sinus syndrome with permanent pacemaker. 5. Melanoma with posterior scalp lesion. RECOMMENDATION: We will continue IV antibiotic therapy for MRSA and gram-negative organisms. The patient was recently in the hospital following his melanoma surgery. I agree with vancomycin and Zosyn. We will need edema control. Leg elevation. <ELECTRONICALLY SIGNED> By: Javad Hunt MD 08/20/18 1231 1702 [id number] Javad Hunt MD /nt
--- NOTE | ~2018-08-18 | O ---
[facility] [place] [address] OPERATIVE REPORT Name: JAY ADAMES Room #: 351-P [facility] IN M.R.#: [id number] Admission: 08/18/18 Attend Phys: Sj Griffin MD Discharge: Date of : 56 Report #: [id number] THIS REPORT FOR: //name// CC: ELIZABETH SARMIENTO Physician staff Sj Griffin DATE OF SERVICE: 09/20/2018 PROCEDURE: Tracheostomy, CPT CODE 17051. PREOPERATIVE DIAGNOSES: 1. Respiratory failure. 2. Myotonic muscular dystrophy. POSTOPERATIVE DIAGNOSES: 1. Respiratory failure. 2. Myotonic muscular dystrophy. SURGEON: Sathya Alcantara MD ANESTHESIA: General. ESTIMATED BLOOD LOSS: 5 mL. COMPLICATIONS: None. SPECIMENS: None. FINDINGS: The patient was found to have normal tracheal anatomy. INDICATIONS FOR PROCEDURE: The patient is a 58-year-old gentleman with a history of myotonic dystrophy and respiratory failure. He has been intubated multiple times. It was decided that he would benefit from tracheostomy tube placement. The risks, benefits and alternatives were discussed with him and his family and they agreed to proceed. DESCRIPTION OF PROCEDURE: After informed consent was obtained, the patient was taken to the operating room and placed in supine position. He underwent general anesthesia. He was prepped and draped in the usual fashion. A timeout was performed. The correct patient and procedure were identified. A vertical skin incision was marked from the cricoid cartilage in the midline down towards the sternal notch. This was infiltrated with 4 mL of 1% lidocaine with 1:100,000 epinephrine. After time was given for vasoconstriction to take effect, the skin was incised with a 15 blade scalpel. Subcutaneous fat was then removed using the Bovie cautery. Fascia and the strap muscles were then divided in the [facility] [address] [place] [address] OPERATIVE REPORT Name: ADAMESJAY Room #: 351-P [facility] IN .R.#: [id number] Admission: 08/18/18 Attend Phys: Sj Griffin MD Discharge: Date of : 56 Report #: [id number] midline using the Bovie cautery and the strap muscles were retracted laterally. Dissection was carried out down to the cricoid cartilage. Soft tissue and thyroid isthmus were then elevated over the anterior tracheal wall using a right angle and these were divided with the Bovie cautery. This exposed the anterior tracheal wall. An incision was marked with the Bovie cautery between the second and third tracheal rings. Anesthesia then deflated the endotracheal tube cuff and the airway was incised between the second and third tracheal rings using 11 blade scalpel. Heavy curved Chaparro scissors were then used to create an inferiorly based Giorgio flap. The endotracheal tube was withdrawn above the stoma by the anesthesia service and a size 8 Shiley cuffed tracheostomy tube was placed into the trachea and the patient was connected to the anesthesia circuit and end-tidal CO2 were confirmed. It was noted that there was a slow leak in the cuff of the tracheostomy tube and this was then exchanged for a new tube over a Cook exchange catheter. This cuff seemed to be functioning properly. The trach tube was then secured to the skin using 2-0 nylon sutures in each corner and also tracheostomy ties. The patient was then turned back over the anesthesia service and he will proceed with having a PEG placement. This ended my portion of the procedure. There were no complications. <ELECTRONICALLY SIGNED> By: Sathya Alcantara MD 10/02/18 1055 1507 1537 Sathya Alcantara MD /nt
--- NOTE | ~2018-08-18 | HC ---
[facility] [place] [address] CONSULTATION Name: JAY ADAMES Room #: 358-[facility] IN M.R.#: [id number] Admission: 08/18/18 Attend Phys: Sj Griffin MD Discharge: Date of : 56 Report #: [id number] THIS REPORT FOR: //name// CC: ELIZABETH SARMIENTO Physician staff Sj Griffin DATE OF SERVICE: 08/22/2018 REASON FOR CONSULTATION: Elevated creatinine. HISTORY OF PRESENT ILLNESS: This patient with muscular dystrophy, chronic lower extremity edema, was admitted with cellulitis of the lower extremities. He has been receiving antibiotics, underwent more aggressive diuresis in the presence of antihypertensives; blood pressure dropped and creatinine mary from 0.9-2.1, BUN from 19-38. He did have excellent urine output with these maneuvers. There was no IV contrast dye given. PAST MEDICAL HISTORY: He has muscular dystrophy, weakness more in the arms than the legs, can walk and get around some. He has a history of hypoventilation; COPD; obstructive sleep apnea, uses CPAP at night; chronic lower extremity edema, currently with the cellulitis as mentioned with previous MRSA infection. He has sick sinus syndrome with a permanent pacemaker for 15 years, a previous appendectomy and cholecystectomy and a history of melanoma on resection of the scalp. FAMILY HISTORY: Positive for heart disease and diabetes. SOCIAL HISTORY: No significant cigarettes or alcohol. Lives by himself. REVIEW OF SYSTEMS: GENERAL: He is feeling reasonably well. EYES: Vision is okay. ENT: Hearing okay, swallows okay, no mouth sores. ENDOCRINE: No diabetes or thyroid disease. RESPIRATORY: Somewhat easily short-winded. CARDIAC: He has no angina or chest pain. Does have lower extremity swelling. GASTROINTESTINAL: No nausea, vomiting, diarrhea or bloody stools. GENITOURINARY: Decent urinary stream. PSYCHIATRIC: He has had a catheter placed for his diuresis. MUSCULOSKELETAL: He has generalized weakness associated with muscular dystrophy. PHYSICAL EXAMINATION: GENERAL: Chronically ill-appearing gentleman, somewhat dystonic. SKIN: Shows cellulitis and chronic inflammatory changes in lower extremities. [facility] [address] [place] [address] CONSULTATION Name: JAY ADAMES Room #: 358-P [facility] IN ..#: [id number] Admission: 08/18/18 Attend Phys: Sj Griffin MD Discharge: Date of : 56 Report #: [id number] SKELETAL: Shows him to be somewhat obese. HEENT: Vision intact. Hearing intact. Mucous membranes moist. NECK: Supple. CHEST: Clear. HEART: Regular. ABDOMEN: Soft and nontender. EXTREMITIES: Show 2-3+ edema of the lower extremities with cellulitic changes. LABORATORY DATA: Urinalysis is done, last was completely benign, no recent one. Hemoglobin 12.1, white count 5.6, platelets 129. Sodium 148, potassium 4.1, chloride 107, bicarbonate 37, creatinine 2.1, BUN 18. ASSESSMENT AND PLAN: 1. Acute kidney injury. Creatinine is up. Blood pressure is low. He has some degree of right-sided failure due to his hypoventilation and chronic obstructive pulmonary disease as well as his obstructive sleep apnea. He is on a converting enzyme inhibitor, which will take several days to get out of his system. He has gotten quite a bit of diuresis. I expect all this to get better, may take several days though. We will stop the diuretic, stop the converting enzyme inhibitor and give him some IV saline. We may need to go to hypotonic fluids as he does have a little bit of hypernatremia. 2. Muscular dystrophy. 3. Chronic lower extremity edema. 4. Cellulitis of the lower extremities. 5. Obstructive sleep apnea with CPAP overnight. 6. Obesity hypoventilation syndrome with hypercapnia. 7. History of melanoma. 8. History of sick sinus syndrome with pacemaker. <ELECTRONICALLY SIGNED> By: Rico Gutiérrez MD 08/31/18 1107 1104 1341 Rico Gutiérrez MD /nt
[2018-08-18 15:51] VITALS: BP 143/88
[2018-08-18 17:12] LABS: ABSOLUTE NEUTROPHILS 4.1 thou/uL (1.4-8.2); BASOPHILS 1.2 % (0.0-2.0); EOSINOPHILS 3.6 % (0.0-3.0); HEMOGLOBIN 12.1 gm/dL (14.0-18.0); LYMPHOCYTES 16.7 % (24.0-44.0); MCH 31.5 pg (26.0-34.0); MCHC 32.7 g/dL (28.0-37.0); MCV 96.1 fL (80.0-100.0); MONOCYTES 7.3 % (1.0-8.0); PLATELET COUNT 129 thou/uL (150-400); POLYS 71.2 % (36.0-66.0); RBC 3.85 mil/uL (4.50-6.00); RDW 16.7 % (10.5-14.5); WBC 5.8 thou/uL (4.0-11.0)
[2018-08-18 17:26] LABS: CREATININE 1.2 mg/dL (0.7-1.3); POTASSIUM 3.8 mmol/L (3.5-5.1)
[2018-08-18 17:31] LABS: ALBUMIN 2.3 g/dL (3.4-5.0); TOTAL BILIRUBIN 1.3 mg/dL (<0.1-1.0); TOTAL PROTEIN 5.6 g/dL (6.4-8.2)
[2018-08-18 18:19] VITALS: BP 143/88
[2018-08-18 18:49] VITALS: BP 119/68
[2018-08-18 20:31] VITALS: BP 139/82
[2018-08-19 05:53] LABS: HEMATOCRIT 35.9 % (42.0-52.0); HEMOGLOBIN 11.8 gm/dL (14.0-18.0); MCH 31.8 pg (26.0-34.0); MCHC 32.8 g/dL (28.0-37.0); MCV 96.9 fL (80.0-100.0); RBC 3.71 mil/uL (4.50-6.00); RDW 16.7 % (10.5-14.5)
[2018-08-19 06:11] LABS: CALCIUM 8.8 mg/dL (8.5-10.1); CREATININE 1.1 mg/dL (0.7-1.3); POTASSIUM 4.3 mmol/L (3.5-5.1)
[2018-08-19 06:20] LABS: INR 1.3; PROTIME 13.6 Seconds (9.3-11.4)
[2018-08-19 08:02] VITALS: BP 99/65
[2018-08-19 16:40] VITALS: BP 112/75
[2018-08-19 19:52] VITALS: BP 113/77
[2018-08-20 05:26] VITALS: BP 144/97
[2018-08-20 06:51] LABS: ABSOLUTE NEUTROPHILS 3.6 thou/uL (1.4-8.2); BASOPHILS 1.4 % (0.0-2.0); EOSINOPHILS 4.5 % (0.0-3.0); HEMATOCRIT 38.2 % (42.0-52.0); HEMOGLOBIN 12.5 gm/dL (14.0-18.0); LYMPHOCYTES 19.8 % (24.0-44.0); MCH 31.5 pg (26.0-34.0); MCHC 32.7 g/dL (28.0-37.0); MCV 96.2 fL (80.0-100.0); MONOCYTES 7.6 % (1.0-8.0); PLATELET COUNT 138 thou/uL (150-400); POLYS 66.7 % (36.0-66.0); RBC 3.97 mil/uL (4.50-6.00); RDW 16.7 % (10.5-14.5); WBC 5.4 thou/uL (4.0-11.0)
[2018-08-20 06:58] LABS: CALCIUM 9.1 mg/dL (8.5-10.1); CREATININE 0.9 mg/dL (0.7-1.3); POTASSIUM 4.2 mmol/L (3.5-5.1)
[2018-08-20 07:36] VITALS: BP 110/67
[2018-08-20 14:46] VITALS: BP 114/74; BP 145/114
[2018-08-20 19:35] VITALS: BP 111/72
[2018-08-21] VITALS (7 sets, daily range): BP systolic 90–118; BP diastolic 51–82
[2018-08-21 06:05] LABS: ABSOLUTE NEUTROPHILS 3.4 thou/uL (1.4-8.2); BASOPHILS 0.5 % (0.0-2.0); EOSINOPHILS 5.1 % (0.0-3.0); HEMATOCRIT 38.2 % (42.0-52.0); HEMOGLOBIN 12.2 gm/dL (14.0-18.0); LYMPHOCYTES 17.2 % (24.0-44.0); MCHC 31.9 g/dL (28.0-37.0); MCV 97.2 fL (80.0-100.0); MONOCYTES 8.4 % (1.0-8.0); PLATELET COUNT 130 thou/uL (150-400); POLYS 68.8 % (36.0-66.0); RBC 3.93 mil/uL (4.50-6.00); RDW 16.9 % (10.5-14.5); WBC 4.9 thou/uL (4.0-11.0)
[2018-08-21 06:18] LABS: CREATININE 0.9 mg/dL (0.7-1.3); POTASSIUM 3.6 mmol/L (3.5-5.1)
[2018-08-22 04:41] VITALS: BP 115/80
[2018-08-22 06:58] LABS: ABSOLUTE NEUTROPHILS 4.1 thou/uL (1.4-8.2); EOSINOPHILS 3.8 % (0.0-3.0); HEMATOCRIT 37.6 % (42.0-52.0); HEMOGLOBIN 12.1 gm/dL (14.0-18.0); LYMPHOCYTES 14.3 % (24.0-44.0); MCH 31.3 pg (26.0-34.0); MCHC 32.2 g/dL (28.0-37.0); MCV 97.2 fL (80.0-100.0); PLATELET COUNT 129 thou/uL (150-400); POLYS 72.9 % (36.0-66.0); RBC 3.87 mil/uL (4.50-6.00); RDW 17.1 % (10.5-14.5); WBC 5.6 thou/uL (4.0-11.0)
[2018-08-22 07:17] LABS: ALBUMIN 2.5 g/dL (3.4-5.0); CALCIUM 9.2 mg/dL (8.5-10.1); MAGNESIUM 2.3 mg/dL (1.8-2.4); POTASSIUM 4.1 mmol/L (3.5-5.1); TOTAL BILIRUBIN 1.4 mg/dL (<0.1-1.0); TOTAL PROTEIN 6.1 g/dL (6.4-8.2)
[2018-08-22 07:23] LABS: CREATININE 2.1 mg/dL (0.7-1.3)
[2018-08-22 07:30] VITALS: BP 103/69
[2018-08-22 17:14] VITALS: BP 103/63
[2018-08-22 17:15] VITALS: BP 103/63
[2018-08-22 20:13] VITALS: BP 103/68
[2018-08-23 04:29] VITALS: BP 130/81
[2018-08-23 04:59] LABS: ABSOLUTE NEUTROPHILS 4.1 thou/uL (1.4-8.2); BASOPHILS 0.9 % (0.0-2.0); EOSINOPHILS 4.2 % (0.0-3.0); HEMATOCRIT 35.5 % (42.0-52.0); HEMOGLOBIN 11.1 gm/dL (14.0-18.0); LYMPHOCYTES 11.4 % (24.0-44.0); MCH 30.9 pg (26.0-34.0); MCHC 31.4 g/dL (28.0-37.0); MCV 98.7 fL (80.0-100.0); MONOCYTES 8.3 % (1.0-8.0); PLATELET COUNT 122 thou/uL (150-400); POLYS 75.2 % (36.0-66.0); RDW 16.9 % (10.5-14.5); WBC 5.5 thou/uL (4.0-11.0)
[2018-08-23 05:00] LABS: ALBUMIN 2.3 g/dL (3.4-5.0); CALCIUM 8.8 mg/dL (8.5-10.1); POTASSIUM 4.3 mmol/L (3.5-5.1)
[2018-08-23 05:04] LABS: CREATININE 3.4 mg/dL (0.7-1.3)
[2018-08-23 09:29] VITALS: BP 136/65
[2018-08-23 15:31] LABS: URINE BILIRUBIN NEGATIVE (Negative); URINE BLOOD 2+ (Negative); URINE CLARITY CLEAR; URINE COLOR YELLOW; URINE GLUCOSE-RANDOM* NEGATIVE (Negative); URINE KETONES NEGATIVE (Negative); URINE LEUKOCYTES NEGATIVE (Negative); URINE NITRITE NEGATIVE (Negative); URINE PROTEIN (DIPSTICK) TRACE (Negative); URINE UROBILINOGEN 0.2 E.U./dl (0.2-1.0)
[2018-08-23 15:33] LABS: URINE CREATININE-RANDOM* 58.8 mg/dL
[2018-08-23 15:43] LABS: BACTERIA 1-9 Few /HPF (None Seen); CASTS None Seen /LPF (None Seen); CRYSTALS None Seen /LPF (None Seen); SQUAMOUS None Seen /LPF (0-3); URINE RBC 3-10 Few /HPF (0-2); URINE WBC None Seen /HPF (0-5)
[2018-08-23 19:53] VITALS: BP 142/85
[2018-08-24 04:23] VITALS: BP 146/84
[2018-08-24 07:59] LABS: HEMATOCRIT 38.7 % (42.0-52.0); MCH 30.5 pg (26.0-34.0); MCHC 30.9 g/dL (28.0-37.0); MCV 98.8 fL (80.0-100.0); RBC 3.92 mil/uL (4.50-6.00); RDW 16.9 % (10.5-14.5); WBC 5.5 thou/uL (4.0-11.0)
[2018-08-24 08:11] LABS: ALBUMIN 2.4 g/dL (3.4-5.0); CALCIUM 9.2 mg/dL (8.5-10.1); CREATININE 4.3 mg/dL (0.7-1.3); PHOSPHORUS 5.3 mg/dL (2.5-4.9); POTASSIUM 4.6 mmol/L (3.5-5.1)
[2018-08-24 09:37] VITALS: BP 131/88
[2018-08-24 18:00] VITALS: BP 133/97
[2018-08-24 19:55] VITALS: BP 146/94
[2018-08-25] VITALS (31 sets, daily range): BP systolic 79–116; BP diastolic 49–80
[2018-08-25 06:38] LABS: ALBUMIN 2.1 g/dL (3.4-5.0); CREATININE 4.6 mg/dL (0.7-1.3); PHOSPHORUS 6.1 mg/dL (2.5-4.9)
[2018-08-25 07:24] LABS: POTASSIUM 5.2 mmol/L (3.5-5.1)
[2018-08-25 08:59] LABS: BE(vivo) -1.3 mmol/L (-2 to +3); HCO3 27.7 mmol/L (22.0-26.0); PCO2 68.7 mmHg (35.0-45.0); PO2 79.9 mmHg (80.0-100.0); pH 7.224 (7.360-7.450); sO2 93.1 % (92.0-98.0)
[2018-08-25 16:14] LABS: BE(vivo) 0.2 mmol/L (-2 to +3); HCO3 29.1 mmol/L (22.0-26.0); PCO2 70.2 mmHg (35.0-45.0); PO2 79.2 mmHg (80.0-100.0); pH 7.235 (7.360-7.450); sO2 93.1 % (92.0-98.0)
[2018-08-26] VITALS (24 sets, daily range): BP systolic 84–121; BP diastolic 48–81
[2018-08-26 04:46] LABS: ALBUMIN 2.1 g/dL (3.4-5.0); CALCIUM 9.3 mg/dL (8.5-10.1); CREATININE 5.5 mg/dL (0.7-1.3); PHOSPHORUS 6.2 mg/dL (2.5-4.9); POTASSIUM 4.8 mmol/L (3.5-5.1)
[2018-08-26 05:33] LABS: BE(vivo) -1.2 mmol/L (-2 to +3); HCO3 25.3 mmol/L (22.0-26.0); PCO2 50.4 mmHg (35.0-45.0); PO2 81.9 mmHg (80.0-100.0); sO2 95.1 % (92.0-98.0)
[2018-08-26 05:34] LABS: pH 7.319 (7.360-7.450)
[2018-08-26 13:07] LABS: BE(vivo) 2.4 mmol/L (-2 to +3); HCO3 29.5 mmol/L (22.0-26.0); PCO2 57.5 mmHg (35.0-45.0); PO2 57.9 mmHg (80.0-100.0); pH 7.328 (7.360-7.450); sO2 87.6 % (92.0-98.0)
[2018-08-27] VITALS (22 sets, daily range): BP systolic 96–138; BP diastolic 66–87
[2018-08-27 05:11] LABS: ALBUMIN 2.1 g/dL (3.4-5.0); CALCIUM 9.4 mg/dL (8.5-10.1); CREATININE 6.1 mg/dL (0.7-1.3); PHOSPHORUS 6.3 mg/dL (2.5-4.9); POTASSIUM 4.5 mmol/L (3.5-5.1)
[2018-08-27 05:17] LABS: HEMATOCRIT 30.8 % (42.0-52.0); HEMOGLOBIN 10.2 gm/dL (14.0-18.0); MCH 32.1 pg (26.0-34.0); MCHC 33.2 g/dL (28.0-37.0); MCV 96.8 fL (80.0-100.0); RBC 3.18 mil/uL (4.50-6.00); RDW 17.1 % (10.5-14.5); WBC 4.2 thou/uL (4.0-11.0)
[2018-08-28] VITALS (53 sets, daily range): BP systolic 100–134; BP diastolic 43–91
[2018-08-28 11:38] LABS: HEMATOCRIT 33.3 % (42.0-52.0); MCH 31.9 pg (26.0-34.0); MCHC 33.1 g/dL (28.0-37.0); MCV 96.3 fL (80.0-100.0); RBC 3.46 mil/uL (4.50-6.00); RDW 16.7 % (10.5-14.5); WBC 4.5 thou/uL (4.0-11.0)
[2018-08-28 11:48] LABS: ALBUMIN 2.2 g/dL (3.4-5.0); CALCIUM 9.6 mg/dL (8.5-10.1); PHOSPHORUS 6.1 mg/dL (2.5-4.9); POTASSIUM 4.5 mmol/L (3.5-5.1)
[2018-08-28 11:49] LABS: CREATININE 4.7 mg/dL (0.7-1.3)
[2018-08-29] VITALS (22 sets, daily range): BP systolic 81–145; BP diastolic 51–86
[2018-08-29 05:00] LABS: ALBUMIN 2.2 g/dL (3.4-5.0); CALCIUM 9.2 mg/dL (8.5-10.1); PHOSPHORUS 4.5 mg/dL (2.5-4.9); POTASSIUM 4.4 mmol/L (3.5-5.1)
[2018-08-29 05:05] LABS: CREATININE 3.3 mg/dL (0.7-1.3)
[2018-08-29 05:55] LABS: DIRECT BILIRUBIN 0.1 mg/dL (<0.1-0.3); TOTAL BILIRUBIN 0.9 mg/dL (<0.1-1.0)
[2018-08-29 07:03] LABS: HEMATOCRIT 33.2 % (42.0-52.0); HEMOGLOBIN 10.9 gm/dL (14.0-18.0); MCH 31.6 pg (26.0-34.0); MCHC 32.7 g/dL (28.0-37.0); MCV 96.8 fL (80.0-100.0); RBC 3.43 mil/uL (4.50-6.00); RDW 16.9 % (10.5-14.5); WBC 5.1 thou/uL (4.0-11.0)
[2018-08-30 04:12] VITALS: BP 120/78
[2018-08-30 05:13] LABS: HEMATOCRIT 35.2 % (42.0-52.0); HEMOGLOBIN 11.4 gm/dL (14.0-18.0); MCH 31.4 pg (26.0-34.0); MCHC 32.5 g/dL (28.0-37.0); MCV 96.5 fL (80.0-100.0); RBC 3.65 mil/uL (4.50-6.00); RDW 16.8 % (10.5-14.5); WBC 4.6 thou/uL (4.0-11.0)
[2018-08-30 05:39] LABS: ALBUMIN 2.2 g/dL (3.4-5.0); CALCIUM 9.4 mg/dL (8.5-10.1); CREATININE 4.1 mg/dL (0.7-1.3); PHOSPHORUS 4.8 mg/dL (2.5-4.9); POTASSIUM 4.5 mmol/L (3.5-5.1)
[2018-08-30 08:42] VITALS: BP 107/67
[2018-08-30 14:12] VITALS: BP 108/71
[2018-08-30 18:28] VITALS: BP 141/92
[2018-08-30 19:40] VITALS: BP 131/84
[2018-08-30 20:10] VITALS: BP 131/84
[2018-08-31 04:10] VITALS: BP 137/80
[2018-08-31 06:43] LABS: ALBUMIN 2.2 g/dL (3.4-5.0); CALCIUM 9.8 mg/dL (8.5-10.1); CREATININE 4.7 mg/dL (0.7-1.3); PHOSPHORUS 5.2 mg/dL (2.5-4.9); POTASSIUM 3.9 mmol/L (3.5-5.1)
[2018-08-31 08:55] VITALS: BP 117/73
[2018-08-31 17:42] VITALS: BP 122/75
[2018-08-31 20:27] VITALS: BP 119/83
[2018-09-01 05:28] VITALS: BP 105/64
[2018-09-01 06:03] LABS: ALBUMIN 2.2 g/dL (3.4-5.0); CALCIUM 9.1 mg/dL (8.5-10.1); PHOSPHORUS 4.1 mg/dL (2.5-4.9); POTASSIUM 4.2 mmol/L (3.5-5.1)
[2018-09-01 08:28] VITALS: BP 114/71
[2018-09-01 11:36] VITALS: BP 130/78
[2018-09-01 16:16] VITALS: BP 126/91
[2018-09-01 18:58] VITALS: BP 134/82
[2018-09-02 04:00] VITALS: BP 81/58
[2018-09-02 06:23] LABS: ALBUMIN 2.3 g/dL (3.4-5.0); CALCIUM 9.5 mg/dL (8.5-10.1); CREATININE 3.7 mg/dL (0.7-1.3); PHOSPHORUS 5.6 mg/dL (2.5-4.9); POTASSIUM 4.5 mmol/L (3.5-5.1)
[2018-09-02 08:49] VITALS: BP 118/67
[2018-09-02 17:35] VITALS: BP 125/72
[2018-09-02 19:43] VITALS: BP 114/63
[2018-09-03] VITALS (131 sets, daily range): BP systolic 53–160; BP diastolic 33–109
[2018-09-03 06:39] LABS: ALBUMIN 2.4 g/dL (3.4-5.0); CALCIUM 9.8 mg/dL (8.5-10.1); PHOSPHORUS 5.2 mg/dL (2.5-4.9)
[2018-09-03 06:43] LABS: CREATININE 2.7 mg/dL (0.7-1.3); POTASSIUM 5.2 mmol/L (3.5-5.1)
[2018-09-03 08:03] LABS: BE(vivo) -2.8 mmol/L (-2 to +3); PCO2 95.5 mmHg (35.0-45.0); PO2 63.2 mmHg (80.0-100.0); sO2 81.8 % (92.0-98.0)
[2018-09-03 11:51] LABS: BE(vivo) -1.8 mmol/L (-2 to +3); HCO3 27.2 mmol/L (22.0-26.0); PCO2 68.6 mmHg (35.0-45.0); PO2 82.8 mmHg (80.0-100.0); pH 7.216 (7.360-7.450); sO2 93.6 % (92.0-98.0)
[2018-09-03 14:47] LABS: HCO3 29.2 mmol/L (22.0-26.0); PCO2 58.1 mmHg (35.0-45.0); PO2 82.2 mmHg (80.0-100.0)
[2018-09-03 14:48] LABS: pH 7.319 (7.360-7.450)
[2018-09-04] VITALS (76 sets, daily range): BP systolic 79–153; BP diastolic 46–94
[2018-09-04 04:17] LABS: HEMATOCRIT 28.5 % (42.0-52.0); HEMOGLOBIN 9.6 gm/dL (14.0-18.0); MCH 31.8 pg (26.0-34.0); MCHC 33.5 g/dL (28.0-37.0); MCV 94.9 fL (80.0-100.0); RBC 3.01 mil/uL (4.50-6.00); WBC 7.3 thou/uL (4.0-11.0)
[2018-09-04 04:24] LABS: ALBUMIN 1.9 g/dL (3.4-5.0); CALCIUM 9.4 mg/dL (8.5-10.1); CREATININE 3.2 mg/dL (0.7-1.3); MAGNESIUM 1.9 mg/dL (1.8-2.4); PHOSPHORUS 1.9 mg/dL (2.5-4.9); TOTAL BILIRUBIN 0.9 mg/dL (<0.1-1.0); TOTAL PROTEIN 6.1 g/dL (6.4-8.2)
[2018-09-04 04:28] LABS: POTASSIUM 3.3 mmol/L (3.5-5.1)
[2018-09-04 05:32] LABS: BE(vivo) 3.4 mmol/L (-2 to +3); HCO3 27.7 mmol/L (22.0-26.0); PO2 91.2 mmHg (80.0-100.0); pH 7.448 (7.360-7.450); sO2 97.3 % (92.0-98.0)
[2018-09-05] VITALS (59 sets, daily range): BP systolic 86–122; BP diastolic 53–76
[2018-09-05 04:27] LABS: HEMATOCRIT 29.3 % (42.0-52.0); HEMOGLOBIN 9.6 gm/dL (14.0-18.0); MCHC 32.8 g/dL (28.0-37.0); MCV 94.6 fL (80.0-100.0); RBC 3.09 mil/uL (4.50-6.00); RDW 16.5 % (10.5-14.5); WBC 7.7 thou/uL (4.0-11.0)
[2018-09-05 04:39] LABS: ALBUMIN 1.8 g/dL (3.4-5.0); CALCIUM 9.1 mg/dL (8.5-10.1); CREATININE 3.5 mg/dL (0.7-1.3); PHOSPHORUS 2.5 mg/dL (2.5-4.9); POTASSIUM 3.4 mmol/L (3.5-5.1)
[2018-09-06] VITALS (45 sets, daily range): BP systolic 94–118; BP diastolic 43–73
[2018-09-06 04:37] LABS: HEMATOCRIT 28.3 % (42.0-52.0); HEMOGLOBIN 9.5 gm/dL (14.0-18.0); MCH 31.8 pg (26.0-34.0); MCHC 33.6 g/dL (28.0-37.0); MCV 94.7 fL (80.0-100.0); RBC 2.99 mil/uL (4.50-6.00); RDW 16.8 % (10.5-14.5); WBC 6.3 thou/uL (4.0-11.0)
[2018-09-06 04:42] LABS: ALBUMIN 1.8 g/dL (3.4-5.0); CALCIUM 9.2 mg/dL (8.5-10.1); CREATININE 3.3 mg/dL (0.7-1.3); PHOSPHORUS 3.8 mg/dL (2.5-4.9); POTASSIUM 3.5 mmol/L (3.5-5.1)
[2018-09-07] VITALS (34 sets, daily range): BP systolic 86–125; BP diastolic 50–81
[2018-09-07 05:25] LABS: HEMATOCRIT 28.3 % (42.0-52.0); HEMOGLOBIN 9.7 gm/dL (14.0-18.0); MCH 32.9 pg (26.0-34.0); MCHC 34.4 g/dL (28.0-37.0); MCV 95.6 fL (80.0-100.0); RBC 2.96 mil/uL (4.50-6.00); RDW 16.7 % (10.5-14.5); WBC 6.4 thou/uL (4.0-11.0)
[2018-09-07 05:32] LABS: ALBUMIN 1.9 g/dL (3.4-5.0); CALCIUM 8.9 mg/dL (8.5-10.1); CREATININE 3.2 mg/dL (0.7-1.3); PHOSPHORUS 3.9 mg/dL (2.5-4.9); POTASSIUM 3.2 mmol/L (3.5-5.1)
[2018-09-08] VITALS (32 sets, daily range): BP systolic 86–125; BP diastolic 53–78
[2018-09-08 04:32] LABS: BE(vivo) 3.7 mmol/L (-2 to +3); HCO3 28.4 mmol/L (22.0-26.0); PCO2 43.8 mmHg (35.0-45.0); PO2 69.3 mmHg (80.0-100.0); sO2 94.3 % (92.0-98.0)
[2018-09-08 05:11] LABS: HEMATOCRIT 28.9 % (42.0-52.0); HEMOGLOBIN 9.6 gm/dL (14.0-18.0); MCH 31.8 pg (26.0-34.0); MCHC 33.2 g/dL (28.0-37.0); MCV 95.6 fL (80.0-100.0); RBC 3.03 mil/uL (4.50-6.00); RDW 16.8 % (10.5-14.5); WBC 6.6 thou/uL (4.0-11.0)
[2018-09-08 05:22] LABS: ALBUMIN 2.1 g/dL (3.4-5.0); CALCIUM 9.6 mg/dL (8.5-10.1); CREATININE 3.1 mg/dL (0.7-1.3); PHOSPHORUS 4.1 mg/dL (2.5-4.9); POTASSIUM 3.3 mmol/L (3.5-5.1)
[2018-09-08 09:05] LABS: BE(vivo) 3.4 mmol/L (-2 to +3); HCO3 29.8 mmol/L (22.0-26.0); PCO2 54.5 mmHg (35.0-45.0); PO2 74.2 mmHg (80.0-100.0); pH 7.356 (7.360-7.450); sO2 94.1 % (92.0-98.0)
[2018-09-08 12:58] LABS: BE(vivo) 2.4 mmol/L (-2 to +3); HCO3 29.2 mmol/L (22.0-26.0); PCO2 56.2 mmHg (35.0-45.0); PO2 72.6 mmHg (80.0-100.0); pH 7.334 (7.360-7.450); sO2 93.4 % (92.0-98.0)
[2018-09-09] VITALS (36 sets, daily range): BP systolic 90–125; BP diastolic 56–87
[2018-09-09 05:16] LABS: HEMATOCRIT 27.4 % (42.0-52.0); HEMOGLOBIN 9.2 gm/dL (14.0-18.0); MCH 31.8 pg (26.0-34.0); MCHC 33.6 g/dL (28.0-37.0); MCV 94.8 fL (80.0-100.0); RBC 2.89 mil/uL (4.50-6.00); RDW 16.5 % (10.5-14.5); WBC 6.7 thou/uL (4.0-11.0)
[2018-09-09 05:26] LABS: ALBUMIN 1.9 g/dL (3.4-5.0); CALCIUM 9.5 mg/dL (8.5-10.1); CREATININE 2.8 mg/dL (0.7-1.3); PHOSPHORUS 4.8 mg/dL (2.5-4.9); POTASSIUM 3.7 mmol/L (3.5-5.1)
[2018-09-09 14:18] LABS: BE(vivo) 0.2 mmol/L (-2 to +3); HCO3 28.3 mmol/L (22.0-26.0); PCO2 64.3 mmHg (35.0-45.0); sO2 93.5 % (92.0-98.0)
[2018-09-09 14:19] LABS: pH 7.261 (7.360-7.450)
[2018-09-10] VITALS (41 sets, daily range): BP systolic 91–138; BP diastolic 67–92
[2018-09-10 05:22] LABS: HEMATOCRIT 28.1 % (42.0-52.0); HEMOGLOBIN 9.5 gm/dL (14.0-18.0); MCH 32.2 pg (26.0-34.0); MCHC 33.7 g/dL (28.0-37.0); MCV 95.4 fL (80.0-100.0); RBC 2.95 mil/uL (4.50-6.00); RDW 16.2 % (10.5-14.5); WBC 8.2 thou/uL (4.0-11.0)
[2018-09-10 05:32] LABS: ALBUMIN 2.1 g/dL (3.4-5.0); CREATININE 2.9 mg/dL (0.7-1.3); PHOSPHORUS 4.4 mg/dL (2.5-4.9); POTASSIUM 3.6 mmol/L (3.5-5.1)
[2018-09-10 15:29] LABS: BE(vivo) 3.7 mmol/L (-2 to +3); HCO3 30.3 mmol/L (22.0-26.0); pH 7.351 (7.360-7.450); sO2 96.1 % (92.0-98.0)
[2018-09-11] VITALS (32 sets, daily range): BP systolic 113–144; BP diastolic 68–96
[2018-09-11 07:53] LABS: HEMATOCRIT 29.2 % (42.0-52.0); HEMOGLOBIN 9.7 gm/dL (14.0-18.0); MCH 31.8 pg (26.0-34.0); MCHC 33.1 g/dL (28.0-37.0); MCV 95.9 fL (80.0-100.0); RBC 3.04 mil/uL (4.50-6.00); RDW 16.3 % (10.5-14.5); WBC 7.9 thou/uL (4.0-11.0)
[2018-09-11 08:14] LABS: ALBUMIN 2.3 g/dL (3.4-5.0); CALCIUM 10.1 mg/dL (8.5-10.1); CREATININE 2.5 mg/dL (0.7-1.3); PHOSPHORUS 5.2 mg/dL (2.5-4.9); POTASSIUM 3.8 mmol/L (3.5-5.1)
[2018-09-11 10:18] LABS: BE(vivo) 1.5 mmol/L (-2 to +3); HCO3 28.2 mmol/L (22.0-26.0); PCO2 55.4 mmHg (35.0-45.0); PO2 74.8 mmHg (80.0-100.0); pH 7.325 (7.360-7.450); sO2 93.8 % (92.0-98.0)
[2018-09-12] VITALS (26 sets, daily range): BP systolic 90–148; BP diastolic 51–101
[2018-09-12 02:38] LABS: BE(vivo) 1.2 mmol/L (-2 to +3); HCO3 26.6 mmol/L (22.0-26.0); PCO2 45.3 mmHg (35.0-45.0); PO2 120.1 mmHg (80.0-100.0); pH 7.386 (7.360-7.450); sO2 98.3 % (92.0-98.0)
[2018-09-12 05:11] LABS: HEMATOCRIT 28.9 % (42.0-52.0); HEMOGLOBIN 9.2 gm/dL (14.0-18.0); MCH 30.8 pg (26.0-34.0); MCV 96.5 fL (80.0-100.0); WBC 7.7 thou/uL (4.0-11.0)
[2018-09-12 05:40] LABS: ALBUMIN 2.3 g/dL (3.4-5.0); CALCIUM 9.7 mg/dL (8.5-10.1); CREATININE 2.3 mg/dL (0.7-1.3); PHOSPHORUS 3.6 mg/dL (2.5-4.9); POTASSIUM 3.8 mmol/L (3.5-5.1)
[2018-09-13] VITALS (24 sets, daily range): BP systolic 91–128; BP diastolic 56–85
[2018-09-13 05:50] LABS: HEMATOCRIT 26.2 % (42.0-52.0); HEMOGLOBIN 8.6 gm/dL (14.0-18.0); MCH 31.8 pg (26.0-34.0); MCV 96.6 fL (80.0-100.0); RBC 2.71 mil/uL (4.50-6.00); RDW 15.8 % (10.5-14.5)
[2018-09-13 06:03] LABS: ALBUMIN 2.1 g/dL (3.4-5.0); CALCIUM 9.5 mg/dL (8.5-10.1); CREATININE 2.1 mg/dL (0.7-1.3); POTASSIUM 3.4 mmol/L (3.5-5.1)
[2018-09-14] VITALS (54 sets, daily range): BP systolic 59–266; BP diastolic 14–121
[2018-09-14 03:38] LABS: BE(vivo) -2.7 mmol/L (-2 to +3); HCO3 24.6 mmol/L (22.0-26.0); PCO2 55.1 mmHg (35.0-45.0); PO2 68.6 mmHg (80.0-100.0); sO2 90.9 % (92.0-98.0)
[2018-09-14 03:39] LABS: pH 7.267 (7.360-7.450)
[2018-09-14 04:09] LABS: HEMATOCRIT 28.6 % (42.0-52.0); HEMOGLOBIN 9.1 gm/dL (14.0-18.0); MCH 30.8 pg (26.0-34.0); MCHC 31.9 g/dL (28.0-37.0); MCV 96.6 fL (80.0-100.0); RBC 2.96 mil/uL (4.50-6.00); RDW 15.6 % (10.5-14.5); WBC 20.3 thou/uL (4.0-11.0)
[2018-09-14 04:11] LABS: PLATELET COUNT 285 thou/uL (150-400)
[2018-09-14 04:20] LABS: ALBUMIN 2.3 g/dL (3.4-5.0); CALCIUM 9.2 mg/dL (8.5-10.1); CREATININE 2.1 mg/dL (0.7-1.3); PHOSPHORUS 5.3 mg/dL (2.5-4.9); POTASSIUM 4.1 mmol/L (3.5-5.1)
[2018-09-14 04:21] LABS: INR 1.3; PROTIME 13.1 Seconds (9.3-11.4)
[2018-09-14 05:25] LABS: ABSOLUTE NEUTROPHILS 18.1 thou/uL (1.4-8.2)
[2018-09-14 05:26] LABS: PLATELET ESTIMATE NORMAL; POLYCHROMASIA OCCASIONAL
[2018-09-14 10:56] LABS: BE(vivo) 5.8 mmol/L (-2 to +3); HCO3 29.9 mmol/L (22.0-26.0); PCO2 41.2 mmHg (35.0-45.0); PO2 272.8 mmHg (80.0-100.0); pH 7.478 (7.360-7.450); sO2 99.7 % (92.0-98.0)
[2018-09-15] VITALS (17 sets, daily range): BP systolic 98–141; BP diastolic 60–89
[2018-09-15 05:41] LABS: HEMATOCRIT 23.4 % (42.0-52.0); HEMOGLOBIN 7.7 gm/dL (14.0-18.0); MCH 31.4 pg (26.0-34.0); RBC 2.46 mil/uL (4.50-6.00); RDW 15.5 % (10.5-14.5); WBC 7.1 thou/uL (4.0-11.0)
[2018-09-15 05:57] LABS: ALBUMIN 2.1 g/dL (3.4-5.0); CALCIUM 9.2 mg/dL (8.5-10.1); CREATININE 2.3 mg/dL (0.7-1.3); POTASSIUM 3.1 mmol/L (3.5-5.1)
[2018-09-15 09:24] LABS: BE(vivo) 4.1 mmol/L (-2 to +3); HCO3 28.5 mmol/L (22.0-26.0); PCO2 41.9 mmHg (35.0-45.0); PO2 88.1 mmHg (80.0-100.0)
[2018-09-16] VITALS (23 sets, daily range): BP systolic 96–154; BP diastolic 48–85
[2018-09-16 04:55] LABS: HEMATOCRIT 23.3 % (42.0-52.0); HEMOGLOBIN 7.8 gm/dL (14.0-18.0); MCH 31.6 pg (26.0-34.0); MCHC 33.4 g/dL (28.0-37.0); MCV 94.7 fL (80.0-100.0); RBC 2.46 mil/uL (4.50-6.00); RDW 15.2 % (10.5-14.5); WBC 7.2 thou/uL (4.0-11.0)
[2018-09-16 05:11] LABS: CALCIUM 8.8 mg/dL (8.5-10.1); PHOSPHORUS 3.1 mg/dL (2.5-4.9); POTASSIUM 3.1 mmol/L (3.5-5.1)
[2018-09-17] VITALS (24 sets, daily range): BP systolic 95–121; BP diastolic 58–81
[2018-09-17 05:46] LABS: HEMATOCRIT 22.6 % (42.0-52.0); HEMOGLOBIN 7.6 gm/dL (14.0-18.0); MCH 31.8 pg (26.0-34.0); MCHC 33.8 g/dL (28.0-37.0); RBC 2.4 mil/uL (4.50-6.00); RDW 15.6 % (10.5-14.5); WBC 6.5 thou/uL (4.0-11.0)
[2018-09-17 05:58] LABS: ALBUMIN 2.1 g/dL (3.4-5.0); CALCIUM 9.2 mg/dL (8.5-10.1); CREATININE 1.8 mg/dL (0.7-1.3); PHOSPHORUS 3.6 mg/dL (2.5-4.9)
[2018-09-17 06:13] LABS: POTASSIUM 2.9 mmol/L (3.5-5.1)
[2018-09-18] VITALS (19 sets, daily range): BP systolic 89–122; BP diastolic 56–74
[2018-09-18 05:13] LABS: ALBUMIN 2.2 g/dL (3.4-5.0); CALCIUM 9.4 mg/dL (8.5-10.1); CREATININE 1.8 mg/dL (0.7-1.3); PHOSPHORUS 3.8 mg/dL (2.5-4.9); POTASSIUM 3.3 mmol/L (3.5-5.1)
[2018-09-18 05:29] LABS: HEMATOCRIT 23.6 % (42.0-52.0); HEMOGLOBIN 7.8 gm/dL (14.0-18.0); MCH 31.1 pg (26.0-34.0); MCV 94.3 fL (80.0-100.0); RBC 2.5 mil/uL (4.50-6.00); RDW 15.2 % (10.5-14.5); WBC 6.1 thou/uL (4.0-11.0)
[2018-09-19] VITALS: BP 113/70
[2018-09-19 01:01] VITALS: BP 120/72
[2018-09-19 02:00] VITALS: BP 115/73
[2018-09-19 02:09] LABS: ADENOVIRUS Negative (Negative); INFLUENZA A Negative (Negative); INFLUENZA B Negative (Negative); METAPNEUMOVIRUS Negative (Negative); PARAINFLUENZA 1 Negative (Negative); PARAINFLUENZA 2 Negative (Negative); PARAINFLUENZA 3 Negative (Negative); RHINOVIRUS Negative (Negative); RSV A Negative (Negative); RSV B Negative (Negative)
[2018-09-19 03:00] VITALS: BP 118/76
[2018-09-19 04:00] VITALS: BP 111/72
[2018-09-19 04:52] LABS: ALBUMIN 2.2 g/dL (3.4-5.0); CALCIUM 9.5 mg/dL (8.5-10.1); PHOSPHORUS 4.5 mg/dL (2.5-4.9); POTASSIUM 3.5 mmol/L (3.5-5.1)
[2018-09-19 05:00] VITALS: BP 113/75
[2018-09-20] VITALS (48 sets, daily range): BP systolic 99–128; BP diastolic 54–87
[2018-09-20 04:11] LABS: ALBUMIN 2.2 g/dL (3.4-5.0); CALCIUM 9.3 mg/dL (8.5-10.1); CREATININE 1.9 mg/dL (0.7-1.3); PHOSPHORUS 4.2 mg/dL (2.5-4.9); POTASSIUM 3.1 mmol/L (3.5-5.1)
[2018-09-21] VITALS (21 sets, daily range): BP systolic 85–119; BP diastolic 49–81
[2018-09-21 05:11] LABS: HEMATOCRIT 23.8 % (42.0-52.0); MCH 31.5 pg (26.0-34.0); MCHC 33.7 g/dL (28.0-37.0); MCV 93.6 fL (80.0-100.0); RBC 2.55 mil/uL (4.50-6.00); RDW 15.1 % (10.5-14.5); WBC 6.8 thou/uL (4.0-11.0)
[2018-09-21 05:18] LABS: ALBUMIN 2.3 g/dL (3.4-5.0); CALCIUM 8.8 mg/dL (8.5-10.1); CREATININE 1.7 mg/dL (0.7-1.3); PHOSPHORUS 3.9 mg/dL (2.5-4.9); POTASSIUM 3.4 mmol/L (3.5-5.1)
[2018-09-21 15:40] LABS: ALBUMIN 2.3 g/dL (3.4-5.0); CALCIUM 9.3 mg/dL (8.5-10.1); CREATININE 1.8 mg/dL (0.7-1.3); MAGNESIUM 1.9 mg/dL (1.8-2.4); PHOSPHORUS 3.9 mg/dL (2.5-4.9); POTASSIUM 3.3 mmol/L (3.5-5.1); TOTAL BILIRUBIN 0.8 mg/dL (<0.1-1.0); TOTAL PROTEIN 6.4 g/dL (6.4-8.2)
[2018-09-22] VITALS (12 sets, daily range): BP systolic 87–117; BP diastolic 49–73
[2018-09-22 04:17] LABS: HEMATOCRIT 21.9 % (42.0-52.0); HEMOGLOBIN 7.1 gm/dL (14.0-18.0); MCH 30.7 pg (26.0-34.0); MCHC 32.5 g/dL (28.0-37.0); MCV 94.6 fL (80.0-100.0); RBC 2.32 mil/uL (4.50-6.00); RDW 15.1 % (10.5-14.5); WBC 5.1 thou/uL (4.0-11.0)
[2018-09-22 04:33] LABS: CALCIUM 8.3 mg/dL (8.5-10.1); CREATININE 1.6 mg/dL (0.7-1.3); MAGNESIUM 1.8 mg/dL (1.8-2.4); PHOSPHORUS 3.5 mg/dL (2.5-4.9); POTASSIUM 3.1 mmol/L (3.5-5.1); TOTAL BILIRUBIN 0.7 mg/dL (<0.1-1.0); TOTAL PROTEIN 5.6 g/dL (6.4-8.2)
[2018-09-23 04:12] LABS: ALBUMIN 2.2 g/dL (3.4-5.0); CALCIUM 9.2 mg/dL (8.5-10.1); CREATININE 1.6 mg/dL (0.7-1.3); MAGNESIUM 2.1 mg/dL (1.8-2.4); PHOSPHORUS 4.5 mg/dL (2.5-4.9); POTASSIUM 3.7 mmol/L (3.5-5.1)
[2018-09-23 06:07] VITALS: BP 127/62
[2018-09-23 07:44] VITALS: BP 117/81
[2018-09-23 12:15] VITALS: BP 108/69
[2018-09-23 17:04] VITALS: BP 118/80
[2018-09-23 19:30] VITALS: BP 123/76
[2018-09-24 04:00] VITALS: BP 110/61
[2018-09-24 06:32] LABS: CALCIUM 9.7 mg/dL (8.5-10.1); CREATININE 1.4 mg/dL (0.7-1.3); MAGNESIUM 2.5 mg/dL (1.8-2.4); POTASSIUM 4.3 mmol/L (3.5-5.1)
[2018-09-24 07:30] VITALS: BP 120/78
[2018-09-24 12:21] VITALS: BP 128/82
[2018-09-24 16:25] VITALS: BP 119/79
[2018-09-24 19:38] VITALS: BP 136/94
[2018-09-25 04:27] VITALS: BP 116/78
[2018-09-25 06:33] LABS: HEMATOCRIT 27.2 % (42.0-52.0); HEMOGLOBIN 8.9 gm/dL (14.0-18.0); MCH 30.8 pg (26.0-34.0); MCHC 32.8 g/dL (28.0-37.0); MCV 94.1 fL (80.0-100.0); RBC 2.89 mil/uL (4.50-6.00); RDW 14.9 % (10.5-14.5)
[2018-09-25 06:47] LABS: ALBUMIN 2.4 g/dL (3.4-5.0); CALCIUM 9.6 mg/dL (8.5-10.1); CREATININE 1.3 mg/dL (0.7-1.3); MAGNESIUM 2.4 mg/dL (1.8-2.4); PHOSPHORUS 3.9 mg/dL (2.5-4.9); TOTAL BILIRUBIN 0.8 mg/dL (<0.1-1.0)
[2018-09-25 08:20] VITALS: BP 141/94
[2018-09-25 12:14] VITALS: BP 115/72
[2018-09-25 13:15] LABS: URINE BILIRUBIN NEGATIVE (Negative); URINE BLOOD NEGATIVE (Negative); URINE CLARITY CLEAR; URINE COLOR YELLOW; URINE GLUCOSE-RANDOM* NEGATIVE (Negative); URINE KETONES NEGATIVE (Negative); URINE LEUKOCYTES-REFLEX NEGATIVE (Negative); URINE NITRITE-REFLEX NEGATIVE (Negative); URINE PROTEIN (DIPSTICK) NEGATIVE (Negative); URINE SPECIFIC GRAVITY 1.015 (1.005-1.035); URINE UROBILINOGEN 0.2 E.U./dl (0.2-1.0)
[2018-09-25 17:32] VITALS: BP 121/80
[2018-09-25 19:30] VITALS: BP 122/81
[2018-09-26 04:00] VITALS: BP 133/86
[2018-09-26 06:32] LABS: HEMATOCRIT 24.9 % (42.0-52.0); HEMOGLOBIN 8.3 gm/dL (14.0-18.0); MCH 31.1 pg (26.0-34.0); MCHC 33.2 g/dL (28.0-37.0); MCV 93.9 fL (80.0-100.0); RBC 2.65 mil/uL (4.50-6.00); RDW 14.8 % (10.5-14.5)
[2018-09-26 06:41] LABS: ALBUMIN 2.4 g/dL (3.4-5.0); CALCIUM 9.7 mg/dL (8.5-10.1); CREATININE 1.3 mg/dL (0.7-1.3); PHOSPHORUS 4.5 mg/dL (2.5-4.9); POTASSIUM 5.1 mmol/L (3.5-5.1)
[2018-09-26 08:10] VITALS: BP 111/75
[2018-09-26 11:42] VITALS: BP 130/86
[2018-09-26 16:05] VITALS: BP 127/83
[2018-09-26 19:54] VITALS: BP 153/74
[2018-09-27 00:16] VITALS: BP 134/74
[2018-09-27 04:15] VITALS: BP 125/69
[2018-09-27 06:22] LABS: HEMATOCRIT 25.3 % (42.0-52.0); HEMOGLOBIN 8.3 gm/dL (14.0-18.0); MCH 30.8 pg (26.0-34.0); MCHC 32.7 g/dL (28.0-37.0); MCV 94.2 fL (80.0-100.0); RBC 2.69 mil/uL (4.50-6.00); RDW 14.8 % (10.5-14.5); WBC 7.6 thou/uL (4.0-11.0)
[2018-09-27 06:41] LABS: ALBUMIN 2.3 g/dL (3.4-5.0); CALCIUM 9.6 mg/dL (8.5-10.1); CREATININE 1.2 mg/dL (0.7-1.3); PHOSPHORUS 4.6 mg/dL (2.5-4.9); POTASSIUM 4.9 mmol/L (3.5-5.1)
[2018-09-27 08:17] VITALS: BP 130/78
[2018-09-27 12:05] VITALS: BP 119/60
[2018-09-27 16:19] VITALS: BP 126/78
[2018-09-27 19:10] VITALS: BP 126/66
[2018-09-28 04:25] VITALS: BP 120/71
[2018-09-28 08:40] VITALS: BP 126/78
[2018-09-28 11:43] VITALS: BP 129/71
[2018-09-28 15:57] VITALS: BP 111/68
[2018-09-28 19:15] VITALS: BP 130/78
[2018-09-29 03:35] VITALS: BP 124/79
[2018-09-29 04:25] LABS: HEMATOCRIT 25.3 % (42.0-52.0); HEMOGLOBIN 8.5 gm/dL (14.0-18.0); MCH 31.1 pg (26.0-34.0); MCHC 33.7 g/dL (28.0-37.0); MCV 92.4 fL (80.0-100.0); RBC 2.74 mil/uL (4.50-6.00); RDW 14.7 % (10.5-14.5); WBC 7.9 thou/uL (4.0-11.0)
[2018-09-29 05:01] LABS: ALBUMIN 2.4 g/dL (3.4-5.0); CALCIUM 9.7 mg/dL (8.5-10.1); CREATININE 1.2 mg/dL (0.7-1.3); PHOSPHORUS 4.6 mg/dL (2.5-4.9)
[2018-09-29 05:02] LABS: POTASSIUM 5.5 mmol/L (3.5-5.1)
[2018-09-29 07:43] VITALS: BP 107/61
[2018-09-29 17:33] VITALS: BP 121/56
[2018-09-29 19:34] VITALS: BP 91/47
[2018-09-30 00:02] VITALS: BP 131/83
[2018-09-30 03:54] VITALS: BP 116/64
[2018-09-30 05:31] LABS: HEMATOCRIT 24.7 % (42.0-52.0); HEMOGLOBIN 8.4 gm/dL (14.0-18.0); MCH 31.6 pg (26.0-34.0); MCHC 34.1 g/dL (28.0-37.0); MCV 92.7 fL (80.0-100.0); RBC 2.66 mil/uL (4.50-6.00); RDW 14.5 % (10.5-14.5); WBC 4.6 thou/uL (4.0-11.0)
[2018-09-30 05:49] LABS: ALBUMIN 2.5 g/dL (3.4-5.0); CREATININE 1.2 mg/dL (0.7-1.3); PHOSPHORUS 4.6 mg/dL (2.5-4.9); POTASSIUM 5.8 mmol/L (3.5-5.1)
[2018-09-30 07:26] VITALS: BP 119/57
[2018-09-30 12:00] VITALS: BP 116/47
[2018-09-30 16:04] VITALS: BP 108/62
[2018-09-30 19:17] VITALS: BP 108/59
[2018-10-01 04:33] VITALS: BP 103/64
[2018-10-01 05:55] LABS: HEMATOCRIT 25.7 % (42.0-52.0); HEMOGLOBIN 8.8 gm/dL (14.0-18.0); MCH 31.4 pg (26.0-34.0); MCHC 34.4 g/dL (28.0-37.0); MCV 91.3 fL (80.0-100.0); RBC 2.81 mil/uL (4.50-6.00); RDW 14.5 % (10.5-14.5); WBC 4.2 thou/uL (4.0-11.0)
[2018-10-01 06:13] LABS: ALBUMIN 2.6 g/dL (3.4-5.0); CALCIUM 9.1 mg/dL (8.5-10.1); CREATININE 1.5 mg/dL (0.7-1.3); PHOSPHORUS 3.8 mg/dL (2.5-4.9); POTASSIUM 4.3 mmol/L (3.5-5.1)
[2018-10-01 08:10] VITALS: BP 102/58
[2018-10-01 11:54] VITALS: BP 109/62
[2018-10-01 16:07] VITALS: BP 116/67
[2018-10-01 19:20] VITALS: BP 123/70
[2018-10-02 05:20] VITALS: BP 102/54
[2018-10-02 05:58] LABS: HEMATOCRIT 22.4 % (42.0-52.0); HEMOGLOBIN 7.6 gm/dL (14.0-18.0); MCH 30.8 pg (26.0-34.0); MCHC 33.9 g/dL (28.0-37.0); MCV 90.8 fL (80.0-100.0); RBC 2.47 mil/uL (4.50-6.00); RDW 14.7 % (10.5-14.5); WBC 3.1 thou/uL (4.0-11.0)
[2018-10-02 06:39] LABS: ALBUMIN 2.3 g/dL (3.4-5.0); CREATININE 1.2 mg/dL (0.7-1.3); PHOSPHORUS 2.9 mg/dL (2.5-4.9); POTASSIUM 3.5 mmol/L (3.5-5.1)
[2018-10-02 08:25] VITALS: BP 108/64
[2018-10-02 11:14] VITALS: BP 99/59
[2018-10-02 15:57] VITALS: BP 107/54
[2018-10-02 20:35] VITALS: BP 103/58
[2018-10-03 03:38] VITALS: BP 123/57
[2018-10-03 07:32] VITALS: BP 118/60
[2018-10-03 07:38] LABS: ALBUMIN 2.2 g/dL (3.4-5.0); CALCIUM 8.9 mg/dL (8.5-10.1); CREATININE 1.2 mg/dL (0.7-1.3); MAGNESIUM 1.9 mg/dL (1.8-2.4); PHOSPHORUS 1.9 mg/dL (2.5-4.9); POTASSIUM 3.3 mmol/L (3.5-5.1)
[2018-10-03 11:53] VITALS: BP 99/53
[2018-10-03 21:17] VITALS: BP 82/55
[2018-10-03 23:52] VITALS: BP 116/83
[2018-10-04 04:15] VITALS: BP 102/60
[2018-10-04 06:30] LABS: ALBUMIN 2.1 g/dL (3.4-5.0); CALCIUM 8.5 mg/dL (8.5-10.1); PHOSPHORUS 3.7 mg/dL (2.5-4.9); POTASSIUM 4.1 mmol/L (3.5-5.1)
[2018-10-04 07:25] VITALS: BP 91/53
[2018-10-04 11:44] VITALS: BP 102/59
[2018-10-04 16:28] VITALS: BP 103/62
[2018-10-04 19:20] VITALS: BP 111/70
[2018-10-05 03:00] VITALS: BP 111/65
[2018-10-05 07:23] VITALS: BP 111/60
[2018-10-05 16:03] VITALS: BP 148/93
[2018-10-05 20:12] VITALS: BP 126/68
[2018-10-06 03:39] VITALS: BP 101/59
[2018-10-06 05:50] LABS: CREATININE 1.1 mg/dL (0.7-1.3); POTASSIUM 3.6 mmol/L (3.5-5.1)
[2018-10-06 05:57] LABS: ABSOLUTE NEUTROPHILS 3.3 thou/uL (1.4-8.2); MCH 30.6 pg (26.0-34.0)
[2018-10-06 06:03] LABS: BASOPHILS 0.7 % (0.0-2.0); EOSINOPHILS 18.3 % (0.0-3.0); HEMATOCRIT 20.4 % (42.0-52.0); HEMOGLOBIN 6.9 gm/dL (14.0-18.0); LYMPHOCYTES 14.1 % (24.0-44.0); MCHC 33.6 g/dL (28.0-37.0); MONOCYTES 5.5 % (1.0-8.0); PLATELET COUNT 140 thou/uL (150-400); POLYS 61.4 % (36.0-66.0); RBC 2.24 mil/uL (4.50-6.00); RDW 14.9 % (10.5-14.5); WBC 5.3 thou/uL (4.0-11.0)
[2018-10-06 07:31] VITALS: BP 94/55
[2018-10-06 11:55] VITALS: BP 115/66
[2018-10-06 14:18] VITALS: BP 116/64; BP 122/83
[2018-10-06 17:32] VITALS: BP 122/62
[2018-10-06 19:51] VITALS: BP 106/54
[2018-10-07 05:16] VITALS: BP 99/56
[2018-10-07 06:36] LABS: ABSOLUTE NEUTROPHILS 4.4 thou/uL (1.4-8.2); BASOPHILS 0.7 % (0.0-2.0); EOSINOPHILS 16.5 % (0.0-3.0); HEMATOCRIT 23.5 % (42.0-52.0); HEMOGLOBIN 8.1 gm/dL (14.0-18.0); LYMPHOCYTES 13.4 % (24.0-44.0); MCH 31.6 pg (26.0-34.0); MCHC 34.4 g/dL (28.0-37.0); MCV 91.8 fL (80.0-100.0); MONOCYTES 5.7 % (1.0-8.0); PLATELET COUNT 146 thou/uL (150-400); POLYS 63.7 % (36.0-66.0); RBC 2.56 mil/uL (4.50-6.00); RDW 15.2 % (10.5-14.5); WBC 6.9 thou/uL (4.0-11.0)
[2018-10-07 08:00] VITALS: BP 119/66
[2018-10-07 11:44] VITALS: BP 122/73
[2018-10-07 16:10] VITALS: BP 112/62
[2018-10-07 19:12] VITALS: BP 100/60
[2018-10-07 23:55] VITALS: BP 100/60
[2018-10-08 05:01] VITALS: BP 92/59
[2018-10-08 08:11] VITALS: BP 134/74
[2018-10-08 11:44] VITALS: BP 107/62
[2018-10-08 15:39] VITALS: BP 113/71
[2018-10-08 20:04] VITALS: BP 113/67
[2018-10-09 05:53] VITALS: BP 106/61
[2018-10-09 07:51] VITALS: BP 109/64
[2018-10-09] MEDS ORDERED: OMEPRAZOLE 20 M20 M1 PER TUBE (10:42)
[2018-10-09 11:57] VITALS: BP 115/66
== END 2018-10-09 15:25 | DRG 3 ==
LOC: ER 15:44 → 4E 17:52 → ICU 17:52 → EROBS 17:52 → 4E 19:07 → ICU 08-25 09:06 → 3W 08-29 19:40 → ICU 09-03 08:44 → 3W 09-22 18:18
PROVIDERS: Hospitalist; Internal Medicine; Internal Medicine Nephrology; Internal Medicine Pulmonary Disease; Nurse Practitioner; Nurse Practitioner Acute Care; Pediatrics; Physician Assistant; Specialist; Surgery
PROC: 5A09357 Assistance with Respiratory Ventilation, Less than 24 Consecutive Hours, Continuous Positive Airway Pressure (ICD-10-PCS; principal; 2018-08-20)
PROC: 5A09357 Assistance with Respiratory Ventilation, Less than 24 Consecutive Hours, Continuous Positive Airway Pressure (ICD-10-PCS; 2018-08-21)
PROC: 5A09357 Assistance with Respiratory Ventilation, Less than 24 Consecutive Hours, Continuous Positive Airway Pressure (ICD-10-PCS; 2018-08-23)
PROC: 5A09357 Assistance with Respiratory Ventilation, Less than 24 Consecutive Hours, Continuous Positive Airway Pressure (ICD-10-PCS; 2018-08-24)
PROC: B5181ZA Fluoroscopy of Superior Vena Cava using Low Osmolar Contrast, Guidance (ICD-10-PCS; 2018-08-25)
PROC: B548ZZA Ultrasonography of Superior Vena Cava, Guidance (ICD-10-PCS; 2018-08-25)
PROC: 02HV33Z Insertion of Infusion Device into Superior Vena Cava, Percutaneous Approach (ICD-10-PCS; 2018-08-25)
PROC: 5A09357 Assistance with Respiratory Ventilation, Less than 24 Consecutive Hours, Continuous Positive Airway Pressure (ICD-10-PCS; 2018-08-25)
PROC: 5A09357 Assistance with Respiratory Ventilation, Less than 24 Consecutive Hours, Continuous Positive Airway Pressure (ICD-10-PCS; 2018-08-26)
PROC: 5A1D70Z Performance of Urinary Filtration, Intermittent, Less than 6 Hours Per Day (ICD-10-PCS; 2018-08-27)
PROC: 5A09357 Assistance with Respiratory Ventilation, Less than 24 Consecutive Hours, Continuous Positive Airway Pressure (ICD-10-PCS; 2018-08-27)
PROC: 5A09357 Assistance with Respiratory Ventilation, Less than 24 Consecutive Hours, Continuous Positive Airway Pressure (ICD-10-PCS; 2018-08-28)
PROC: 5A1D70Z Performance of Urinary Filtration, Intermittent, Less than 6 Hours Per Day (ICD-10-PCS; 2018-08-28)
PROC: 5A09357 Assistance with Respiratory Ventilation, Less than 24 Consecutive Hours, Continuous Positive Airway Pressure (ICD-10-PCS; 2018-08-29)
PROC: 5A09357 Assistance with Respiratory Ventilation, Less than 24 Consecutive Hours, Continuous Positive Airway Pressure (ICD-10-PCS; 2018-08-30)
PROC: 5A1D70Z Performance of Urinary Filtration, Intermittent, Less than 6 Hours Per Day (ICD-10-PCS; 2018-08-31)
PROC: 5A09357 Assistance with Respiratory Ventilation, Less than 24 Consecutive Hours, Continuous Positive Airway Pressure (ICD-10-PCS; 2018-08-31)
PROC: 5A09357 Assistance with Respiratory Ventilation, Less than 24 Consecutive Hours, Continuous Positive Airway Pressure (ICD-10-PCS; 2018-09-01)
PROC: 5A09357 Assistance with Respiratory Ventilation, Less than 24 Consecutive Hours, Continuous Positive Airway Pressure (ICD-10-PCS; 2018-09-02)
PROC: 5A1D70Z Performance of Urinary Filtration, Intermittent, Less than 6 Hours Per Day (ICD-10-PCS; 2018-09-02)
PROC: 5A09357 Assistance with Respiratory Ventilation, Less than 24 Consecutive Hours, Continuous Positive Airway Pressure (ICD-10-PCS; 2018-09-03)
PROC: 5A1955Z Respiratory Ventilation, Greater than 96 Consecutive Hours (ICD-10-PCS; 2018-09-04)
PROC: 02HV33Z Insertion of Infusion Device into Superior Vena Cava, Percutaneous Approach (ICD-10-PCS; 2018-09-05)
PROC: B548ZZA Ultrasonography of Superior Vena Cava, Guidance (ICD-10-PCS; 2018-09-05)
PROC: B5181ZA Fluoroscopy of Superior Vena Cava using Low Osmolar Contrast, Guidance (ICD-10-PCS; 2018-09-05)
PROC: 0BDF8ZX Extraction of Right Lower Lung Lobe, Via Natural or Artificial Opening Endoscopic, Diagnostic (ICD-10-PCS; 2018-09-07)
PROC: 5A09357 Assistance with Respiratory Ventilation, Less than 24 Consecutive Hours, Continuous Positive Airway Pressure (ICD-10-PCS; 2018-09-11)
PROC: 5A09357 Assistance with Respiratory Ventilation, Less than 24 Consecutive Hours, Continuous Positive Airway Pressure (ICD-10-PCS; 2018-09-12)
PROC: 5A09357 Assistance with Respiratory Ventilation, Less than 24 Consecutive Hours, Continuous Positive Airway Pressure (ICD-10-PCS; 2018-09-13)
PROC: 0BJ08ZZ Inspection of Tracheobronchial Tree, Via Natural or Artificial Opening Endoscopic (ICD-10-PCS; 2018-09-14)
PROC: 0BH17EZ Insertion of Endotracheal Airway into Trachea, Via Natural or Artificial Opening (ICD-10-PCS; 2018-09-14)
PROC: 5A12012 Performance of Cardiac Output, Single, Manual (ICD-10-PCS; 2018-09-14)
PROC: 5A1955Z Respiratory Ventilation, Greater than 96 Consecutive Hours (ICD-10-PCS; 2018-09-14)
PROC: 0B110F4 Bypass Trachea to Cutaneous with Tracheostomy Device, Open Approach (ICD-10-PCS; 2018-09-20)
PROC: 0GBJ0ZZ Excision of Thyroid Gland Isthmus, Open Approach (ICD-10-PCS; 2018-09-20)
PROC: 0DH63UZ Insertion of Feeding Device into Stomach, Percutaneous Approach (ICD-10-PCS; 2018-09-20)
PROC: 5A1955Z Respiratory Ventilation, Greater than 96 Consecutive Hours (ICD-10-PCS; 2018-09-20)
PROC: 3E0336Z Introduction of Nutritional Substance into Peripheral Vein, Percutaneous Approach (ICD-10-PCS; 2018-09-25)
PROC: 0D20XUZ Change Feeding Device in Upper Intestinal Tract, External Approach (ICD-10-PCS; 2018-09-26)
PROC: 30233N1 Transfusion of Nonautologous Red Blood Cells into Peripheral Vein, Percutaneous Approach (ICD-10-PCS; 2018-10-06)
DX: A41.9 Sepsis, unspecified organism (principal); J96.21 Acute and chronic respiratory failure with hypoxia; J96.22 Acute and chronic respiratory failure with hypercapnia; J69.0 Pneumonitis due to inhalation of food and vomit; E43 Unspecified severe protein-calorie malnutrition; N17.0 Acute kidney failure with tubular necrosis; I50.31 Acute diastolic (congestive) heart failure; I46.9 Cardiac arrest, cause unspecified; I48.92 Unspecified atrial flutter; L03.116 Cellulitis of left lower limb; L03.115 Cellulitis of right lower limb; E66.2 Morbid (severe) obesity with alveolar hypoventilation; L97.829 Non-pressure chronic ulcer of other part of left lower leg with unspecified severity; L97.819 Non-pressure chronic ulcer of other part of right lower leg with unspecified severity; I13.0 Hypertensive heart and chronic kidney disease with heart failure and stage 1 through stage 4 chronic kidney disease, or unspecified chronic kidney disease; I42.9 Cardiomyopathy, unspecified; G93.40 Encephalopathy, unspecified; E87.4 Mixed disorder of acid-base balance; E87.0 Hyperosmolality and hypernatremia; J98.11 Atelectasis; K52.1 Toxic gastroenteritis and colitis; R57.9 Shock, unspecified; R04.89 Hemorrhage from other sites in respiratory passages; K56.600 Partial intestinal obstruction, unspecified as to cause; I87.8 Other specified disorders of veins; J44.9 Chronic obstructive pulmonary disease, unspecified; F41.9 Anxiety disorder, unspecified; R65.20 Severe sepsis without septic shock; G71.11 Myotonic muscular dystrophy; E87.6 Hypokalemia; L89.890 Pressure ulcer of other site, unstageable; E83.39 Other disorders of phosphorus metabolism; I49.5 Sick sinus syndrome; D50.0 Iron deficiency anemia secondary to blood loss (chronic); N18.9 Chronic kidney disease, unspecified; D69.6 Thrombocytopenia, unspecified; B37.9 Candidiasis, unspecified; Y95 Nosocomial condition; E87.5 Hyperkalemia; K76.0 Fatty (change of) liver, not elsewhere classified; I48.91 Unspecified atrial fibrillation; K59.00 Constipation, unspecified; T36.95XA Adverse effect of unspecified systemic antibiotic, initial encounter; Y92.89 Other specified places as the place of occurrence of the external cause; Z95.810 Presence of automatic (implantable) cardiac defibrillator; Z99.2 Dependence on renal dialysis; Z86.14 Personal history of Methicillin resistant Staphylococcus aureus infection; Z68.38 Body mass index [BMI] 38.0-38.9, adult; Z85.820 Personal history of malignant melanoma of skin; Z90.49 Acquired absence of other specified parts of digestive tract; Z79.899 Other long term (current) drug therapy; Z88.8 Allergy status to other drugs, medicaments and biological substances; Z82.49 Family history of ischemic heart disease and other diseases of the circulatory system; Z83.3 Family history of diabetes mellitus
CPT/HCPCS: 10078; 10183; 10203; 10779; 10783; 10879; 32100; 50101; 50386; 50398; 56525; 56526; 56639; 57006; 62110; 62900